=== PATIENT | male | born 1955 | race African-American/Black ===

== ENCOUNTER 2017-06-02 18:17 | Emergency (ER) | payer MEDICAID, MEDICARE ==
[~2017-06-02] VITALS: Ht 170.2 cm; Wt 107.0 kg
[~2017-06-02 18:17] MED LIST: BENA40TA3 PO; METF500T PO; QUET25TA PO
[2017-06-02 23:16] LABS: BASOPHILS % 0.3 % (0.0-2.0); CHLORIDE 107 mEq/L (98-107); EOSINOPHILS % 1.8 % (0.0-5.0); HEMATOCRIT. 40.4 % (42.0-52.0); HEMOGLOBIN. 13.3 g/dL (14.0-18.0); LYMPHOCYTES % 25.8 % (20.0-50.0); MEAN CORPUSCULAR VOLUME 88.4 fL (80.0-94.0); MEAN PLATELET VOLUME 7.8 fl (7.4-10.4); NEUTROPHILS % 66.1 % (40.0-76.0); PLATELET 286 x1000/uL (130-400); RED BLOOD CELL COUNT 4.57 mill/uL (4.7-6.1); RED CELL DISTRIBUTION WIDTH 14.7 % (11.6-14.6)
[2017-06-02 23:21] LABS: PROTHROMBIN TIME 10.1 sec (9.4-11.6)
[2017-06-02 23:31] LABS: CARBON DIOXIDE 29 mEq/L (21-32)
[2017-06-02] MEDS ORDERED: MORPHINE SULFATE 4 MG/ML CPJ (NOT FOR IM USE) IV STA (23:48)
[2017-06-02] MEDS ORDERED: SODIUM CHLORIDE 0.9% 1,000 ML IV ONE (23:48)
[2017-06-02] MEDS ORDERED: ONDANSETRON HCL 4MG/2ML VIAL IV STA (23:48)
[2017-06-03] MEDS ORDERED: MORPHINE SULFATE 10 MG/ML CPJ IV STA (00:25)
[2017-06-03] MEDS ORDERED: MORPHINE SULFATE 10 MG/ML CPJ IV SCH (00:30)
[2017-06-03 01:18] LABS: CLARITY URINE CLEAR (CLEAR); COLOR URINE YELLOW (YELLOW); GLUCOSE URINE NEGATIVE (NEGATIVE); KETONES URINE NEGATIVE (NEGATIVE); LEUKOCYTE ESTERASE URINE NEGATIVE (NEGATIVE); NITRITE URINE NEGATIVE (NEGATIVE); OCCULT BLOOD URINE NEGATIVE (NEGATIVE); PH URINE 5.5 (4.5-8.0); PROTEIN URINE NEGATIVE (NEGATIVE); SPECIFIC GRAVITY URINE 1.014 (1.005-1.030); UROBILINOGEN URINE 0.2 E.U./dL (0.2-1.0)
[2017-06-03 03:13] VITALS: BP 132/86
== END 2017-06-03 03:20 | disposition home or self-care (01) ==
LOC: ER 18:27
DX: K40.20 Bilateral inguinal hernia, without obstruction or gangrene, not specified as recurrent (principal); N28.1 Cyst of kidney, acquired; E11.9 Type 2 diabetes mellitus without complications; I10 Essential (primary) hypertension; K57.90 Diverticulosis of intestine, part unspecified, without perforation or abscess without bleeding; G89.29 Other chronic pain; F17.200 Nicotine dependence, unspecified, uncomplicated; Z88.6 Allergy status to analgesic agent
CPT/HCPCS: 36415; 74177; 76857; 80053; 81003; 82962; 85025; 85610; 96361; 96374; 96375; 99285; G0482; J2270; J2405; J7030; Z7610

== ENCOUNTER 2017-06-03 14:44 | Emergency (ER) | payer MEDICARE ==
[~2017-06-03] VITALS: Ht 180.3 cm; Wt 90.0 kg
[~2017-06-03 14:44] MED LIST changes: +IOHEXOL-300 100 ML BOTTLE ONE
[2017-06-03] MEDS ORDERED: SODIUM CHLORIDE 0.9% 1,000 ML IV ONE (16:00)
[2017-06-03] MEDS ORDERED: ONDANSETRON HCL 4MG/2ML VIAL IV ONE (16:00)
[2017-06-03] MEDS ORDERED: MORPHINE SULFATE 1MG/ML 1ML INJ SYR(NEO) IV ONE (16:00)
[2017-06-03] MEDS ORDERED: MORPHINE SULFATE 2 MG/ML CPJ (NOT FOR IM USE) IV NR (16:30)
[2017-06-03 16:32] LABS: BASOPHILS % 0.4 % (0.0-2.0); EOSINOPHILS % 2.4 % (0.0-5.0); HEMATOCRIT. 37.1 % (42.0-52.0); HEMOGLOBIN. 12.4 g/dL (14.0-18.0); LYMPHOCYTES % 25.5 % (20.0-50.0); MEAN CORPUSCULAR HEMOGLOBIN 29.3 pg (28.0-32.0); MEAN CORPUSCULAR VOLUME 87.7 fL (80.0-94.0); MEAN PLATELET VOLUME 7.6 fl (7.4-10.4); NEUTROPHILS % 65.7 % (40.0-76.0); PLATELET 257 x1000/uL (130-400); RED BLOOD CELL COUNT 4.23 mill/uL (4.7-6.1); RED CELL DISTRIBUTION WIDTH 14.4 % (11.6-14.6)
[2017-06-03 16:36] LABS: PROTHROMBIN TIME 10.4 sec (9.4-11.6)
[2017-06-03 16:42] LABS: CARBON DIOXIDE 25 mEq/L (21-32); CHLORIDE 109 mEq/L (98-107)
[2017-06-03 16:47] LABS: CLARITY URINE CLEAR (CLEAR); COLOR URINE YELLOW (YELLOW); KETONES URINE NEGATIVE (NEGATIVE); LEUKOCYTE ESTERASE URINE NEGATIVE (NEGATIVE); NITRITE URINE NEGATIVE (NEGATIVE); OCCULT BLOOD URINE NEGATIVE (NEGATIVE); PROTEIN URINE NEGATIVE (NEGATIVE); SPECIFIC GRAVITY URINE 1.015 (1.005-1.030); UROBILINOGEN URINE 0.2 E.U./dL (0.2-1.0)
[2017-06-03 16:57] VITALS: BP 145/76
== END 2017-06-03 18:26 | disposition left against medical advice (07) ==
LOC: ER 14:50
DX: K40.20 Bilateral inguinal hernia, without obstruction or gangrene, not specified as recurrent (principal); E11.9 Type 2 diabetes mellitus without complications; I10 Essential (primary) hypertension; F20.9 Schizophrenia, unspecified; Z88.6 Allergy status to analgesic agent
CPT/HCPCS: 36415; 80053; 81003; 83690; 85025; 85610; 96361; 96374; 96375; 99285; J2270; J2405; J7030; Q9967; Z7610

== ENCOUNTER 2023-07-29 21:48 | Emergency (ER) | payer MEDICARE, MEDICAID ==
[~2023-07-29] VITALS: Ht 180.3 cm; Wt 114.0 kg
[~2023-07-29 21:48] MED LIST changes: -BENA40TA3 PO; +BENA40TA91 PO; -IOHEXOL-300 100 ML BOTTLE ONE
[2023-07-29 23:14] VITALS: BP 164/75; PULSE 72; RESP 15; TEMP 98.4; O2SAT 100
[2023-07-30 00:12] LABS: BASOPHILS % 0.7 % (0.0-2.0); HEMATOCRIT. 38.4 % (42.0-52.0); HEMOGLOBIN. 12.8 g/dL (14.0-18.0); LYMPHOCYTES % 26.2 % (20.0-50.0); MEAN CORPUSCULAR HEMOGLOBIN 30.2 pg (28.0-32.0); MEAN CORPUSCULAR HGB CONC 33.3 g/dL (31.0-37.0); MEAN CORPUSCULAR VOLUME 90.7 fL (80.0-94.0); MEAN PLATELET VOLUME 7.8 fl (7.4-10.4); MONOCYTES % 8.2 % (2.0-8.0); NEUTROPHILS % 62.9 % (40.0-76.0); PLATELET 290 x1000/uL (130-400); RED BLOOD CELL COUNT 4.24 mill/uL (4.7-6.1); RED CELL DISTRIBUTION WIDTH 14.4 % (11.6-14.6); WHITE BLOOD COUNT 8.1 x1000/uL (4.5-11.0)
[2023-07-30 00:32] LABS: ALANINE AMINOTRANSFERASE 17 IU/L (10-49); ASPARTATE AMINOTRANSFERASE 20 IU/L (<34); BILIRUBIN TOTAL 0.6 mg/dL (0.1-1.0); CALCIUM 9.1 mg/dL (8.7-10.4); CARBON DIOXIDE 22 mEq/L (21-32); CHLORIDE 111 mEq/L (98-107); GLUCOSE 101 mg/dL (70-105); PROTEIN TOTAL 7.2 g/dL (6.0-8.3); SODIUM 143 mEq/L (136-145); TROPONIN I HIGH SENSITIVITY 4 ng/L (3.0-53); UREA NITROGEN BLOOD 12 mg/dL (9-23)
== END 2023-07-30 04:00 | disposition left against medical advice (07) ==
LOC: ER 21:48
DX: R07.89 Other chest pain (principal); Z53.21 Procedure and treatment not carried out due to patient leaving prior to being seen by health care provider
CPT/HCPCS: 36415; 71045; 80053; 83880; 84484; 85025; 93005; 99281

== ENCOUNTER 2025-01-22 09:57 | Inpatient (IN) | payer BC, MEDICAID ==
[2025-01-22] VITALS (31 sets, daily range): BP systolic 105–169; BP diastolic 50–95; PULSE 73–135; RESP 28–31; TEMP 36.4–36.8; O2SAT 98–100
[~2025-01-22] VITALS: Ht 180.3 cm; Wt 115.3 kg
[~2025-01-22 09:57] MED LIST changes: +ATOR40TA70 PO; -BENA40TA91 PO; +DILT60TA4 PO; +FURO40TA5 PO; +HYDR25TA78 PO; +INSLIS SUBCUT; +ISOS60TA76 PO; +LANTUSUD SUBCUT; +LORA-249 PO; -METF500T PO; +PANT40TA51 PO; -QUET25TA PO; +SUCR1TAB PO
[2025-01-22] MEDS: IOHEXOL-350 100 ML BOTTLE ONE (10:47)
[2025-01-22 10:59] LABS: BASOPHILS % 0.5 % (0.0-2.0); EOSINOPHILS % 0.7 % (0.0-5.0); HEMATOCRIT. 25.3 % (42.0-52.0); HEMOGLOBIN. 7.7 g/dL (14.0-18.0); LYMPHOCYTES % 8.4 % (20.0-50.0); MEAN PLATELET VOLUME 7.0 fl (7.4-10.4); MONOCYTES % 12.3 % (2.0-8.0); NEUTROPHILS % 78.1 % (40.0-76.0); PLATELET 488 x1000/uL (130-400); RED BLOOD CELL COUNT 2.77 mill/uL (4.7-6.1); RED CELL DISTRIBUTION WIDTH 22.8 % (11.6-14.6)
[2025-01-22 11:08] LABS: INR 1.6
[2025-01-22 11:10] LABS: ETHANOL BLOOD < 10 mg/dL (<10); TROPONIN I HIGH SENSITIVITY 12 ng/L (3.0-53); UREA NITROGEN BLOOD 37 mg/dL (9-23)
[2025-01-22 11:11] LABS: ADD RBC MORPHOLOGY YES; ASPARTATE AMINOTRANSFERASE 476 IU/L (<34)
[2025-01-22 11:12] LABS: BILIRUBIN DIRECT 0.5 mg/dL (<=3.0); BILIRUBIN TOTAL 0.9 mg/dL (0.1-1.0); PROTEIN TOTAL 5.6 g/dL (6.0-8.3)
[2025-01-22 11:21] LABS: CREATININE 3.1 mg/dL (0.6-1.3)
[2025-01-22] MEDS: SODIUM CHLORIDE 0.9% 1,000 ML IV ONE ×2 (11:24→11:30)
[2025-01-22] MEDS: DILTIAZEM HCL 5MG/ML 5ML VIAL IV ONE (11:28)
[2025-01-22 11:33] LABS: PLATELET ESTIMATE INCREASED
[2025-01-22] MEDS: PIPERACILLIN/TAZO 3.375G/50ML 50 ML IV ONE (11:42)
[2025-01-22 13:43] LABS: BG DEOXYHEMOGLOBIN 23.8 % (0.0-5.0)
[2025-01-22 16:04] LABS: BG BASE EXCESS -20.5 mmol/L (-2.0-3.0); BG CARBOXYHEMOGLOBIN 0.5 % (0.5-1.5); BG DEOXYHEMOGLOBIN 1.5 % (0.0-5.0); BG FLOW(L/min) 3.00 L/min; BG FRACTION INSPIRED OXYGEN 32; BG HCO3 ACT 6.3 mmol/L (21.0-28.0); BG METHEMOGLOBIN 0.5 % (0.5-1.5); BG OXYGEN SATURATION 98.5 % (94.0-98.0); BG OXYHEMOGLOBIN 97.5 % (94.0-98.0); BG PCO2 17.8 mmHg (35.0-48.0); BG PH 7.164 (7.350-7.450); BG PO2 138.5 mmHg (83.0-108.0); BG SAMPLE SITE RIGHT RADIAL; BG TOTAL HEMOGLOBIN 8.2 g/dL (13.5-17.5); BG VENT MODE NASAL CANNULA
[2025-01-22] MEDS: ONDANSETRON HCL 4MG/2ML INJ IV PRN (16:09)
[2025-01-22] MEDS: SODIUM CHLORIDE 0.9% 1,000 ML IV SCH (16:10)
[2025-01-22] MEDS: SODIUM BICARBONATE 8.4% 50MEQ/50ML SYR IV SCH (16:10)
[2025-01-22] MEDS: LACTATED RINGERS 1,000 ML IV SCH (16:12)
[2025-01-22] MEDS: VANCOMYCIN 2GM PMX (XELLIA) 400 ML IV SCH (18:12)
[2025-01-22 18:24] LABS: BG BASE EXCESS -17.6 mmol/L (-2.0-3.0); BG CARBOXYHEMOGLOBIN 0.9 % (0.5-1.5); BG DEOXYHEMOGLOBIN 0.2 % (0.0-5.0); BG FRACTION INSPIRED OXYGEN 40; BG HCO3 ACT 8.4 mmol/L (21.0-28.0); BG METHEMOGLOBIN 0.3 % (0.5-1.5); BG OXYGEN SATURATION 99.8 % (94.0-98.0); BG OXYHEMOGLOBIN 98.6 % (94.0-98.0); BG PCO2 20.8 mmHg (35.0-48.0); BG PH 7.223 (7.350-7.450); BG PO2 223.3 mmHg (83.0-108.0); BG SAMPLE SITE RIGHT RADIAL; BG TOTAL HEMOGLOBIN 8.0 g/dL (13.5-17.5); BG TOTAL RESPIRATORY RATE 29 b/min; BG VENT MODE MASK - BIPAP; BG VENT RATE 28.0 set
[2025-01-22] MEDS ORDERED: INSULIN REGULAR 100U/100ML PMX 100 ML IV SCH (18:45)
[2025-01-22] MEDS ORDERED: DEXTROSE 50% WATER 50ML SYRINGE IV PRN ×3 (18:45→19:00)
[2025-01-22] MEDS ORDERED: ONDANSETRON HCL 4MG/2ML INJ IV PRN (18:45)
[2025-01-22] MEDS ORDERED: BLOOD SUGAR DIAGNOSTIC STRIP TEST SCH (18:45)
[2025-01-22] MEDS ORDERED: SODIUM PHOSPHATE 15 MMOL in SODIUM CHLORIDE 0.9% 245 ML IV PRN (19:00)
[2025-01-22] MEDS ORDERED: BLOOD SUGAR DIAGNOSTIC STRIP TEST PRN (19:00)
[2025-01-22] MEDS ORDERED: SODIUM CHLORIDE 0.9% 1,000 ML IV SCH (19:00)
[2025-01-22] MEDS ORDERED: POTASSIUM CHLORIDE 40 MEQ in SODIUM CHLORIDE 0.9% 230 ML IV PRN (19:00)
[2025-01-22] MEDS ORDERED: MAGNESIUM 2 G PREMIX 50 ML IV PRN (19:00)
[2025-01-22] MEDS: BLOOD SUGAR DIAGNOSTIC STRIP TEST SCH (19:00)
[2025-01-22 20:06] LABS: PLATELET 488 x1000/uL (130-400); RED BLOOD CELL COUNT 2.57 mill/uL (4.7-6.1); RED CELL DISTRIBUTION WIDTH 22.0 % (11.6-14.6)
[2025-01-22 20:21] LABS: CREATININE 3.3 mg/dL (0.6-1.3); UREA NITROGEN BLOOD 45.0 mg/dL (9-23)
[2025-01-22 21:27] LABS: PHOSPHORUS 5.6 mg/dL (2.5-4.9)
[2025-01-22] MEDS: DEXT 5%/0.9% NACL 1,000 ML IV SCH (21:47)
[2025-01-22] MEDS: KCL 20MEQ/100ML PREMIX 100 ML IV PRN (21:48)
[2025-01-22] MEDS: INSULIN REGULAR 100U/100ML PMX 100 ML IV SCH (21:58)
[2025-01-22 22:02] LABS: CLARITY URINE CLEAR (CLEAR); COLOR URINE YELLOW (YELLOW); GLUCOSE URINE NEGATIVE (NEGATIVE); KETONES URINE 1+ (NEGATIVE); LEUKOCYTE ESTERASE URINE NEGATIVE (NEGATIVE); NITRITE URINE NEGATIVE (NEGATIVE); OCCULT BLOOD URINE TRACE (NEGATIVE); PH URINE 5.0 (4.5-8.0); PROTEIN URINE 1+ (NEGATIVE); SPECIFIC GRAVITY URINE 1.034 (1.005-1.030); UROBILINOGEN URINE 1.0 E.U./dL (0.2-1.0)
[2025-01-22 22:07] LABS: PHOSPHORUS 5.5 mg/dL (2.5-4.9)
[2025-01-22 22:26] LABS: WBC URINE 0-2 /hpf (0-2)
[2025-01-22 22:27] LABS: BACTERIA URINE 1+; SQUAMOUS EPITHELIAL CELL URINE FEW /lpf (RARE/1+)
[2025-01-22] MEDS: IPRATROPIUM/ALBUTEROL 0.5-3(2.5)MG/3ML NEB HHN PRN (22:41)
[2025-01-22] MEDS ORDERED: SODIUM BICARBONATE 150 MEQ in SODIUM CHLORIDE 0.45% 850 ML IV SCH (23:00)
[2025-01-23] VITALS (64 sets, daily range): BP systolic 107–181; BP diastolic 49–120; PULSE 66–101; RESP 12–35; TEMP 36.4–36.9; O2SAT 87–100
[2025-01-23 01:03] LABS: BG BASE EXCESS -16.1 mmol/L (-2.0-3.0); BG CARBOXYHEMOGLOBIN 1.3 % (0.5-1.5); BG DEOXYHEMOGLOBIN 17.8 % (0.0-5.0); BG FRACTION INSPIRED OXYGEN 40; BG HCO3 ACT 10.1 mmol/L (21.0-28.0); BG METHEMOGLOBIN 0.0 % (0.5-1.5); BG OXYGEN SATURATION 82.0 % (94.0-98.0); BG OXYHEMOGLOBIN 80.9 % (94.0-98.0); BG PCO2 25.2 mmHg (35.0-48.0); BG PH 7.221 (7.350-7.450); BG PO2 52.0 mmHg (83.0-108.0); BG SAMPLE SITE RIGHT BRACHIAL; BG TOTAL HEMOGLOBIN 6.6 g/dL (13.5-17.5); BG VENT MODE MASK - BIPAP; BG VENT RATE 28.0 set
[2025-01-23] MEDS: SODIUM BICARBONATE 150 MEQ in DEXT 5%/0.45% NACL 1000ML 850 ML IV SCH (01:05)
[2025-01-23] MEDS: PIPERACILLIN/TAZO 3.375G/50ML 50 ML IV SCH (01:14)
[2025-01-23 01:27] LABS: FOLIC ACID (FOLATE) SERUM 15.67 ng/mL (>5.38)
[2025-01-23 03:12] LABS: PHOSPHORUS 4.6 mg/dL (2.5-4.9)
[2025-01-23 03:57] LABS: HEMATOCRIT. 23.4 % (42.0-52.0); HEMOGLOBIN. 7.1 g/dL (14.0-18.0); MEAN PLATELET VOLUME 6.9 fl (7.4-10.4); PLATELET 458 x1000/uL (130-400); RED BLOOD CELL COUNT 2.59 mill/uL (4.7-6.1); RED CELL DISTRIBUTION WIDTH 23.1 % (11.6-14.6)
[2025-01-23 04:26] LABS: CREATININE 3.3 mg/dL (0.6-1.3); UREA NITROGEN BLOOD 41 mg/dL (9-23)
[2025-01-23 04:28] LABS: PHOSPHORUS 4.0 mg/dL (2.5-4.9)
[2025-01-23 07:20] LABS: BAND% 6.0 % (1.0-6.0); EOSINOPHILS % MANUAL 1.0 % (0.0-5.0); LYMPHOCYTES % MANUAL 9.0 % (20.0-50.0); MONOCYTES % MANUAL 16.0 % (2.0-8.0); NEUTROPHILS % MANUAL 68.0 % (45.0-75.0); PLATELET ESTIMATE INCREASED
[2025-01-23] MEDS: HYDRALAZINE 20MG/ML VIAL IV PRN (08:14)
[2025-01-23] MEDS: FAMOTIDINE 20MG/2ML VIAL IV SCH (08:14)
[2025-01-23 08:22] LABS: BG BASE EXCESS -13.2 mmol/L (-2.0-3.0); BG CARBOXYHEMOGLOBIN 0.5 % (0.5-1.5); BG DEOXYHEMOGLOBIN 0.3 % (0.0-5.0); BG FRACTION INSPIRED OXYGEN 50; BG HCO3 ACT 11.5 mmol/L (21.0-28.0); BG METHEMOGLOBIN 0.3 % (0.5-1.5); BG OXYGEN SATURATION 99.7 % (94.0-98.0); BG OXYHEMOGLOBIN 98.9 % (94.0-98.0); BG PCO2 22.7 mmHg (35.0-48.0); BG PH 7.322 (7.350-7.450); BG PO2 265.2 mmHg (83.0-108.0); BG SAMPLE SITE RIGHT RADIAL; BG TOTAL HEMOGLOBIN 7.4 g/dL (13.5-17.5); BG VENT MODE MASK - BIPAP; BG VENT RATE 28.0 set
[2025-01-23] MEDS ORDERED: DEXTROSE 50% WATER 50ML SYRINGE IV PRN ×2 (08:45→13:00)
[2025-01-23] MEDS: SODIUM BICARBONATE 8.4% 50MEQ/50ML SYR IV SCH (09:27)
[2025-01-23 10:19] LABS: *AMPHETAMINES SCREEN URINE NEGATIVE (NEGATIVE); *BARBITURATES SCREEN URINE NEGATIVE (NEGATIVE); *BENZODIAZEPINES SCREEN URINE NEGATIVE (NEGATIVE); *COCAINE SCREEN URINE NEGATIVE (NEGATIVE); METHADONE URINE SCREEN NEGATIVE (NEGATIVE); OPIATES URINE SCREEN PRESUMPTIVE POSITIVE (NEGATIVE)
[2025-01-23 10:20] LABS: CANNABINOID URINE SCREEN NEGATIVE (NEGATIVE); ECSTASY MDMA SCREEN URINE NEGATIVE (NEGATIVE); PHENCYCLIDINE URINE SCREEN NEGATIVE (NEGATIVE)
[2025-01-23 10:46] LABS: SODIUM URINE RANDOM < 10 mEq/L
[2025-01-23 11:37] LABS: VITAMIN B12 SERUM > 2000 pg/mL (211-911)
[2025-01-23 11:39] LABS: OSMOLALITY URINE 356 mOsm/kg (500-850)
[2025-01-23] MEDS: SODIUM CHLORIDE 0.9% 500 ML IV ONE (12:19)
[2025-01-23] MEDS ORDERED: BLOOD SUGAR DIAGNOSTIC STRIP TEST PRN (13:00)
[2025-01-23] MEDS ORDERED: INSULIN REGULAR 100U/100ML PMX 100 ML IV SCH (13:00)
[2025-01-23] MEDS: DEXT 5%/0.9% NACL 1,000 ML IV SCH (13:00)
[2025-01-23] MEDS ORDERED: MAGNESIUM 2 G PREMIX 50 ML IV PRN (13:00)
[2025-01-23] MEDS ORDERED: POTASSIUM CHLORIDE 40 MEQ in SODIUM CHLORIDE 0.9% 230 ML IV PRN (13:00)
[2025-01-23] MEDS ORDERED: SODIUM PHOSPHATE 15 MMOL in SODIUM CHLORIDE 0.9% 245 ML IV PRN (13:00)
[2025-01-23] MEDS: BLOOD SUGAR DIAGNOSTIC STRIP TEST SCH (13:13)
[2025-01-23 13:17] LABS: BG DEOXYHEMOGLOBIN 0.5 % (0.0-5.0)
[2025-01-23 13:29] LABS: CREATININE 3.1 mg/dL (0.6-1.3); UREA NITROGEN BLOOD 45.0 mg/dL (9-23)
[2025-01-23 13:31] LABS: TRIGLYCERIDE 94 mg/dL (0-150)
[2025-01-23 13:32] LABS: LDL CHOLESTEROL 16 mg/dL (5-100)
[2025-01-23] MEDS ORDERED: INSULIN LISPRO 100 UNITS/ML SUBCUT SCH (14:00)
[2025-01-23] MEDS: INSULIN REGULAR 100U/100ML PMX 100 ML IV SCH (15:07)
[2025-01-23] MEDS: DEXT 5%/0.45% NACL 1000ML 1,000 ML IV SCH (15:08)
[2025-01-23 17:15] LABS: ASPARTATE AMINOTRANSFERASE 168 IU/L (<34); BILIRUBIN DIRECT 0.4 mg/dL (<=3.0); BILIRUBIN TOTAL 0.7 mg/dL (0.1-1.0); PROTEIN TOTAL 5.5 g/dL (6.0-8.3)
[2025-01-23 18:57] LABS: PHOSPHORUS 3.0 mg/dL (2.5-4.9)
[2025-01-23] MEDS ORDERED: NALOXONE HCL 0.4MG/ML VIAL IV PRN (19:45)
[2025-01-23] MEDS: HYDROMORPHONE HCL/PF 2MG/ML INJ IV SCH (20:24)
[2025-01-23] MEDS ORDERED: ATORVASTATIN CALCIUM 40MG TABLET PO SCH (21:00)
[2025-01-23] MEDS ORDERED: VANCOMYCIN 750MG PREMIX 150 ML IV SCH (21:00)
[2025-01-23] MEDS: AMLODIPINE 10MG TABLET PO SCH (23:54)
[2025-01-23] MEDS: HYDRALAZINE HCL 25MG TABLET PO SCH (23:54)
[2025-01-24] VITALS (44 sets, daily range): BP systolic 109–190; BP diastolic 41–129; PULSE 74–139; RESP 10–31; TEMP 33.9–37.2; O2SAT 94–100
[2025-01-24] MEDS: PIPERACILLIN/TAZO 3.375G/50ML 50 ML IV SCH (00:11)
[2025-01-24] MEDS: SODIUM CHLORIDE 0.9% 500 ML IV ONE ×2 (01:55)
[2025-01-24 01:57] LABS: PHOSPHORUS 3.7 mg/dL (2.5-4.9)
[2025-01-24] MEDS: KCL 20MEQ/100ML PREMIX 100 ML IV PRN (02:12)
[2025-01-24 05:53] LABS: BASOPHILS % 0.3 % (0.0-2.0); EOSINOPHILS % 2.9 % (0.0-5.0); HEMATOCRIT. 25.9 % (42.0-52.0); HEMOGLOBIN. 8.6 g/dL (14.0-18.0); LYMPHOCYTES % 10.4 % (20.0-50.0); MEAN PLATELET VOLUME 6.9 fl (7.4-10.4); MONOCYTES % 12.0 % (2.0-8.0); NEUTROPHILS % 74.4 % (40.0-76.0); PLATELET 438 x1000/uL (130-400); RED BLOOD CELL COUNT 3.05 mill/uL (4.7-6.1); RED CELL DISTRIBUTION WIDTH 21.0 % (11.6-14.6)
[2025-01-24 06:00] LABS: INR 1.3
[2025-01-24 06:06] LABS: CREATININE 2.8 mg/dL (0.6-1.3); UREA NITROGEN BLOOD 47 mg/dL (9-23)
[2025-01-24 06:08] LABS: PHOSPHORUS 3.9 mg/dL (2.5-4.9)
[2025-01-24] MEDS: SUCRALFATE 1G TABLET PO SCH (06:30)
[2025-01-24] MEDS: PANTOPRAZOLE SODIUM 40 MG/VIAL IV SCH (08:39)
[2025-01-24] MEDS: FOLIC ACID/VITAMIN B COMP W-C TABLET PO SCH (08:40)
[2025-01-24] MEDS: FUROSEMIDE 40MG/4ML VIAL IVP NR (08:40)
[2025-01-24] MEDS: DEXT 5%/0.45% NACL 1000ML 1,000 ML IV SCH (08:41)
[2025-01-24] MEDS: FERROUS SULFATE 325MG TABLET PO SCH (08:41)
[2025-01-24 11:04] LABS: ASPARTATE AMINOTRANSFERASE 112 IU/L (<34); BILIRUBIN DIRECT 0.6 mg/dL (<=3.0); BILIRUBIN TOTAL 1.1 mg/dL (0.1-1.0); PHOSPHORUS 3.7 mg/dL (2.5-4.9); PROTEIN TOTAL 5.9 g/dL (6.0-8.3)
[2025-01-24] MEDS: DEXTROSE 5% WATER 1,000 ML IV SCH (13:02)
[2025-01-24 13:32] LABS: CREATININE 2.6 mg/dL (0.6-1.3); UREA NITROGEN BLOOD 46.0 mg/dL (9-23)
[2025-01-24 16:46] LABS: PHOSPHORUS 3.9 mg/dL (2.5-4.9)
[2025-01-24 18:16] LABS: PHOSPHORUS 4.0 mg/dL (2.5-4.9)
[2025-01-24] MEDS: MICAFUNGIN 100 MG in SODIUM CHLORIDE 0.9% 100 ML IV SCH (18:46)
[2025-01-24 22:20] LABS: PHOSPHORUS 4.1 mg/dL (2.5-4.9)
[2025-01-25] VITALS (89 sets, daily range): BP systolic 110–170; BP diastolic 48–79; PULSE 74–105; RESP 6–26; TEMP 36.3–37.3; O2SAT 100
[2025-01-25] MEDS ORDERED: BLOOD SUGAR DIAGNOSTIC STRIP TEST SCH
[2025-01-25] MEDS: QUETIAPINE FUMARATE 25MG TABLET PO PRN (01:53)
[2025-01-25] MEDS: MIDAZOLAM 100MG/100ML PMX 100 ML IV PRN (03:20)
[2025-01-25] MEDS: FENTANYL 2500MCG/250ML PMX 250 ML IV PRN (03:20)
[2025-01-25 04:57] LABS: BASOPHILS % 0.1 % (0.0-2.0); EOSINOPHILS % 3.2 % (0.0-5.0); HEMATOCRIT. 22.5 % (42.0-52.0); HEMOGLOBIN. 7.5 g/dL (14.0-18.0); LYMPHOCYTES % 10.4 % (20.0-50.0); MEAN PLATELET VOLUME 6.9 fl (7.4-10.4); MONOCYTES % 9.3 % (2.0-8.0); NEUTROPHILS % 77.0 % (40.0-76.0); PLATELET 415 x1000/uL (130-400); RED BLOOD CELL COUNT 2.69 mill/uL (4.7-6.1); RED CELL DISTRIBUTION WIDTH 21.7 % (11.6-14.6)
[2025-01-25 05:19] LABS: CREATININE 2.2 mg/dL (0.6-1.3); UREA NITROGEN BLOOD 39 mg/dL (9-23)
[2025-01-25 05:21] LABS: ASPARTATE AMINOTRANSFERASE 84 IU/L (<34); BILIRUBIN DIRECT 0.8 mg/dL (<=3.0); BILIRUBIN TOTAL 1.2 mg/dL (0.1-1.0); PROTEIN TOTAL 6.0 g/dL (6.0-8.3)
[2025-01-25 06:03] LABS: BG FRACTION INSPIRED OXYGEN 60; BG SAMPLE SITE LEFT RADIAL; BG TIDAL VOLUME(mL) 550 mL; BG VENT MODE AC; BG VENT RATE 20 set
[2025-01-25 06:04] LABS: BG PCO2 31.3 mmHg (35.0-48.0); BG PEEP (cmH2O) 5 cmH2O; BG PH 7.326 (7.350-7.450)
[2025-01-25 06:05] LABS: BG BASE EXCESS -8.7 mmol/L (-2.0-3.0); BG HCO3 ACT 16.0 mmol/L (21.0-28.0); BG PO2 241.4 mmHg (83.0-108.0); BG TOTAL HEMOGLOBIN 14.3 g/dL (13.5-17.5)
[2025-01-25 06:06] LABS: BG CARBOXYHEMOGLOBIN 1.3 % (0.5-1.5); BG OXYGEN SATURATION 99.8 % (94.0-98.0)
[2025-01-25 06:07] LABS: BG METHEMOGLOBIN 0.1 % (0.5-1.5)
[2025-01-25] MEDS: LIDOCAINE HCL 1% 10 MG/ML 10ML VIAL ONE (09:00)
[2025-01-25] MEDS: ONDANSETRON HCL 4MG/2ML INJ IV ONE (09:00)
[2025-01-25] MEDS: MORPHINE SULFATE 4 MG/ML INJ (FOR IV/IM USE) IV ONE (09:00)
[2025-01-25] MEDS: PANTOPRAZOLE SODIUM 40 MG/VIAL IV ONE (09:00)
[2025-01-25] MEDS: VANCOMYCIN 1G PREMIX 200 ML IV ONE (09:00)
[2025-01-25] MEDS ORDERED: DEXTROSE 50% WATER 50ML SYRINGE IV PRN (09:15)
[2025-01-25 09:53] LABS: BASOPHILS % 0.1 % (0.0-2.0); EOSINOPHILS % 3.7 % (0.0-5.0); HEMATOCRIT. 21.6 % (42.0-52.0); HEMOGLOBIN. 7.3 g/dL (14.0-18.0); LYMPHOCYTES % 11.8 % (20.0-50.0); MEAN PLATELET VOLUME 7.0 fl (7.4-10.4); MONOCYTES % 9.4 % (2.0-8.0); NEUTROPHILS % 75.0 % (40.0-76.0); PLATELET 351 x1000/uL (130-400); RED BLOOD CELL COUNT 2.52 mill/uL (4.7-6.1); RED CELL DISTRIBUTION WIDTH 21.6 % (11.6-14.6)
[2025-01-25 10:04] LABS: CREATININE 1.9 mg/dL (0.6-1.3); UREA NITROGEN BLOOD 30.0 mg/dL (9-23)
[2025-01-25] MEDS: INSULIN GLARGINE 100 UNITS/ML SUBCUT SCH (10:04)
[2025-01-25] MEDS: BLOOD SUGAR DIAGNOSTIC STRIP TEST SCH (12:05)
[2025-01-25] MEDS: INSULIN LISPRO 100 UNITS/ML SUBCUT SCH (12:07)
[2025-01-25] MEDS ORDERED: ETOMIDATE 2MG/ML 10ML VIAL IV ONE (13:50)
[2025-01-25] MEDS: PROPOFOL 10MG/ML 100ML 100 ML IV PRN (14:12)
[2025-01-25 14:59] LABS: BG DEOXYHEMOGLOBIN 0.2 % (0.0-5.0); BG OXYHEMOGLOBIN 98.4 % (94.0-98.0)
[2025-01-25] MEDS ORDERED: DIATR MEGLU/DIATRIZOATE SOLN 30ML PO SCH (18:00)
[2025-01-26] VITALS (92 sets, daily range): BP systolic 114–164; BP diastolic 50–107; PULSE 72–89; RESP 17–27; TEMP 36.8–37.3; O2SAT 98–100
[2025-01-26 06:00] LABS: BASOPHILS % 0.1 % (0.0-2.0); EOSINOPHILS % 5.0 % (0.0-5.0); HEMATOCRIT. 21.8 % (42.0-52.0); HEMOGLOBIN. 7.4 g/dL (14.0-18.0); LYMPHOCYTES % 9.6 % (20.0-50.0); MEAN PLATELET VOLUME 7.1 fl (7.4-10.4); MONOCYTES % 7.6 % (2.0-8.0); NEUTROPHILS % 77.7 % (40.0-76.0); PLATELET 376 x1000/uL (130-400); RED BLOOD CELL COUNT 2.58 mill/uL (4.7-6.1); RED CELL DISTRIBUTION WIDTH 22.0 % (11.6-14.6)
[2025-01-26 06:12] LABS: INR 1.2
[2025-01-26 06:16] LABS: CREATININE 1.6 mg/dL (0.6-1.3)
[2025-01-26 06:17] LABS: UREA NITROGEN BLOOD 28.0 mg/dL (9-23)
[2025-01-26 06:21] LABS: TRIGLYCERIDE 623 mg/dL (0-150)
[2025-01-26 06:23] LABS: ASPARTATE AMINOTRANSFERASE 63 IU/L (<34); BILIRUBIN DIRECT 0.8 mg/dL (<=3.0); BILIRUBIN TOTAL 1.3 mg/dL (0.1-1.0); PROTEIN TOTAL 5.4 g/dL (6.0-8.3)
[2025-01-26] MEDS: DIATR MEGLU/DIATRIZOATE SOLN 30ML PO SCH (08:31)
[2025-01-26 09:14] LABS: BG BASE EXCESS -5.6 mmol/L (-2.0-3.0); BG CARBOXYHEMOGLOBIN 1.4 % (0.5-1.5); BG DEOXYHEMOGLOBIN 0.6 % (0.0-5.0); BG FRACTION INSPIRED OXYGEN 40; BG HCO3 ACT 18.5 mmol/L (21.0-28.0); BG METHEMOGLOBIN 0.1 % (0.5-1.5); BG OXYGEN SATURATION 99.4 % (94.0-98.0); BG OXYHEMOGLOBIN 97.9 % (94.0-98.0); BG PCO2 30.3 mmHg (35.0-48.0); BG PEEP (cmH2O) 5.0 cmH2O; BG PH 7.403 (7.350-7.450); BG PO2 169.3 mmHg (83.0-108.0); BG SAMPLE SITE LEFT RADIAL; BG TIDAL VOLUME(mL) 550.0 mL; BG TOTAL HEMOGLOBIN 7.7 g/dL (13.5-17.5); BG TOTAL RESPIRATORY RATE 21 b/min; BG VENT MODE VENT - AC; BG VENT RATE 20.0 set
[2025-01-26] MEDS ORDERED: FENTANYL CITRATE/PF 2,500 MCG in SODIUM CHLORIDE 0.9% 200 ML IV PRN (09:30)
[2025-01-26] MEDS ORDERED: MIDAZOLAM HCL 100 MG in SODIUM CHLORIDE 0.9% 80 ML IV PRN (09:30)
[2025-01-26] MEDS: PROPOFOL 10MG/ML 100ML 100 ML IV SCH (11:27)
[2025-01-26] MEDS: MIDAZOLAM 100MG/100ML PREMIX IV PRN (11:56)
[2025-01-26] MEDS: VANCOMYCIN 750MG PMX (XELLIA) 150 ML IV SCH (11:57)
[2025-01-26] MEDS: FENTANYL 2500MCG/250ML PMX 250 ML IV PRN (16:38)
[2025-01-27] VITALS (86 sets, daily range): BP systolic 98–168; BP diastolic 54–88; PULSE 79–115; RESP 10–31; TEMP 36.6–37.9; O2SAT 99–100
[2025-01-27] MEDS: LACTULOSE 20G/30ML UDC PO SCH (00:07)
[2025-01-27 05:38] LABS: BASOPHILS % 0.3 % (0.0-2.0); EOSINOPHILS % 4.4 % (0.0-5.0); HEMATOCRIT. 21.5 % (42.0-52.0); HEMOGLOBIN. 7.1 g/dL (14.0-18.0); LYMPHOCYTES % 12.3 % (20.0-50.0); MEAN PLATELET VOLUME 7.1 fl (7.4-10.4); MONOCYTES % 8.2 % (2.0-8.0); NEUTROPHILS % 74.8 % (40.0-76.0); PLATELET 372 x1000/uL (130-400); RED BLOOD CELL COUNT 2.56 mill/uL (4.7-6.1); RED CELL DISTRIBUTION WIDTH 21.7 % (11.6-14.6)
[2025-01-27 05:59] LABS: CREATININE 1.4 mg/dL (0.6-1.3); TRIGLYCERIDE 70 mg/dL (0-150); UREA NITROGEN BLOOD 20 mg/dL (9-23)
[2025-01-27 06:01] LABS: ASPARTATE AMINOTRANSFERASE 50 IU/L (<34); BILIRUBIN DIRECT 0.8 mg/dL (<=3.0); BILIRUBIN TOTAL 1.2 mg/dL (0.1-1.0); PROTEIN TOTAL 5.5 g/dL (6.0-8.3)
[2025-01-27] MEDS: MAGNESIUM HYDROXIDE 400MG/5ML 30ML UDC PO SCH (08:31)
[2025-01-27] MEDS ORDERED: POTASSIUM CHLORIDE 40 MEQ in DEXT 5% WATER 230 ML IV ONE (10:15)
[2025-01-27] MEDS: KCL 20MEQ/100ML X 2 FOR TOTAL KCL 40MEQ/200ML IV SCH (11:01)
[2025-01-27 15:41] LABS: BG BASE EXCESS -5.0 mmol/L (-2.0-3.0); BG CARBOXYHEMOGLOBIN 0.7 % (0.5-1.5); BG DEOXYHEMOGLOBIN 4.7 % (0.0-5.0); BG FRACTION INSPIRED OXYGEN 40; BG HCO3 ACT 18.9 mmol/L (21.0-28.0); BG METHEMOGLOBIN 0.3 % (0.5-1.5); BG OXYGEN SATURATION 95.3 % (94.0-98.0); BG OXYHEMOGLOBIN 94.3 % (94.0-98.0); BG PCO2 30.3 mmHg (35.0-48.0); BG PEEP (cmH2O) 5.0 cmH2O; BG PH 7.412 (7.350-7.450); BG PO2 80.8 mmHg (83.0-108.0); BG SAMPLE SITE LEFT RADIAL; BG TOTAL HEMOGLOBIN 8.5 g/dL (13.5-17.5); BG VENT MODE VENT - CPAP
[2025-01-27 20:27] LABS: BG BASE EXCESS -7.5 mmol/L (-2.0-3.0); BG CARBOXYHEMOGLOBIN 0.6 % (0.5-1.5); BG DEOXYHEMOGLOBIN 1.6 % (0.0-5.0); BG FLOW(L/min) 3.00 L/min; BG FRACTION INSPIRED OXYGEN 32; BG HCO3 ACT 16.9 mmol/L (21.0-28.0); BG METHEMOGLOBIN 0.3 % (0.5-1.5); BG OXYGEN SATURATION 98.4 % (94.0-98.0); BG OXYHEMOGLOBIN 97.5 % (94.0-98.0); BG PCO2 30.2 mmHg (35.0-48.0); BG PH 7.367 (7.350-7.450); BG PO2 119.0 mmHg (83.0-108.0); BG SAMPLE SITE LEFT RADIAL; BG TOTAL HEMOGLOBIN 8.5 g/dL (13.5-17.5); BG VENT MODE NASAL CANNULA
[2025-01-27] MEDS: VANCOMYCIN 500MG PREMIX 100 ML IV SCH (21:18)
[2025-01-28] VITALS (88 sets, daily range): BP systolic 97–165; BP diastolic 40–103; PULSE 85–111; RESP 17–34; TEMP 36.4–37; O2SAT 97–100
[2025-01-28 05:29] LABS: BASOPHILS % 0.2 % (0.0-2.0); EOSINOPHILS % 3.4 % (0.0-5.0); HEMATOCRIT. 22.8 % (42.0-52.0); HEMOGLOBIN. 7.4 g/dL (14.0-18.0); LYMPHOCYTES % 11.7 % (20.0-50.0); MEAN PLATELET VOLUME 7.1 fl (7.4-10.4); MONOCYTES % 10.2 % (2.0-8.0); NEUTROPHILS % 74.5 % (40.0-76.0); PLATELET 381 x1000/uL (130-400); RED BLOOD CELL COUNT 2.73 mill/uL (4.7-6.1); RED CELL DISTRIBUTION WIDTH 21.3 % (11.6-14.6)
[2025-01-28 05:42] LABS: CREATININE 1.4 mg/dL (0.6-1.3); UREA NITROGEN BLOOD 15 mg/dL (9-23)
[2025-01-28 08:14] LABS: BG BASE EXCESS -4.1 mmol/L (-2.0-3.0); BG CARBOXYHEMOGLOBIN 2.0 % (0.5-1.5); BG DEOXYHEMOGLOBIN 1.1 % (0.0-5.0); BG FRACTION INSPIRED OXYGEN 32; BG HCO3 ACT 20.6 mmol/L (21.0-28.0); BG METHEMOGLOBIN 0.3 % (0.5-1.5); BG OXYGEN SATURATION 98.9 % (94.0-98.0); BG OXYHEMOGLOBIN 96.6 % (94.0-98.0); BG PCO2 35.6 mmHg (35.0-48.0); BG PH 7.381 (7.350-7.450); BG PO2 130.4 mmHg (83.0-108.0); BG SAMPLE SITE RIGHT RADIAL; BG TOTAL HEMOGLOBIN 6.1 g/dL (13.5-17.5); BG VENT MODE MASK - BIPAP; BG VENT RATE 18.0 set
[2025-01-28] MEDS: METOLAZONE 5MG TABLET PO SCH (08:24)
[2025-01-28] MEDS: FUROSEMIDE 40MG/4ML VIAL IVP SCH (08:34)
[2025-01-28 13:00] LABS: ASPARTATE AMINOTRANSFERASE 43 IU/L (<34); BILIRUBIN DIRECT 0.6 mg/dL (<=3.0); BILIRUBIN TOTAL 1.0 mg/dL (0.1-1.0); PROTEIN TOTAL 6.0 g/dL (6.0-8.3)
[2025-01-28] MEDS: VANCOMYCIN 750MG/150ML (BAXTER) IV SCH (13:54)
[2025-01-28] MEDS: QUETIAPINE FUMARATE 25MG TABLET PO SCH (20:10)
[2025-01-29] VITALS (54 sets, daily range): BP systolic 95–165; BP diastolic 44–120; PULSE 87–105; RESP 19–44; TEMP 36.4–38.3; O2SAT 95–99
[2025-01-29 05:26] LABS: BASOPHILS % 0.4 % (0.0-2.0); EOSINOPHILS % 4.1 % (0.0-5.0); HEMATOCRIT. 23.8 % (42.0-52.0); HEMOGLOBIN. 7.7 g/dL (14.0-18.0); LYMPHOCYTES % 12.8 % (20.0-50.0); MEAN PLATELET VOLUME 7.7 fl (7.4-10.4); MONOCYTES % 10.0 % (2.0-8.0); NEUTROPHILS % 72.7 % (40.0-76.0); PLATELET 353 x1000/uL (130-400); RED BLOOD CELL COUNT 2.81 mill/uL (4.7-6.1); RED CELL DISTRIBUTION WIDTH 20.9 % (11.6-14.6)
[2025-01-29 05:37] LABS: CREATININE 1.6 mg/dL (0.6-1.3); UREA NITROGEN BLOOD 16.0 mg/dL (9-23)
[2025-01-29] MEDS: POTASSIUM CHLORIDE 20MEQ/PACKET NG SCH (08:19)
[2025-01-29] MEDS: ACETAMINOPHEN 325MG TABLET PO PRN (08:20)
[2025-01-30] VITALS: BP 120/56; PULSE 95; RESP 18; TEMP 36.6; O2SAT 95
[2025-01-30 04:00] VITALS: BP 120/62; PULSE 96; RESP 16; TEMP 36.2; O2SAT 98
[2025-01-30] MEDS: ACETAMINOPHEN 650MG/20.3ML UDC PO PRN (06:19)
[2025-01-30 08:00] VITALS: BP 103/55; PULSE 97; RESP 17; TEMP 35.8; O2SAT 98
[2025-01-30 09:40] LABS: BASOPHILS % 0.9 % (0.0-2.0); EOSINOPHILS % 3.7 % (0.0-5.0); HEMATOCRIT. 24.9 % (42.0-52.0); HEMOGLOBIN. 8.2 g/dL (14.0-18.0); LYMPHOCYTES % 14.8 % (20.0-50.0); MEAN PLATELET VOLUME 8.1 fl (7.4-10.4); MONOCYTES % 10.5 % (2.0-8.0); NEUTROPHILS % 70.1 % (40.0-76.0); PLATELET 332 x1000/uL (130-400); RED BLOOD CELL COUNT 2.95 mill/uL (4.7-6.1); RED CELL DISTRIBUTION WIDTH 20.7 % (11.6-14.6)
[2025-01-30 09:46] LABS: CREATININE 1.7 mg/dL (0.6-1.3); UREA NITROGEN BLOOD 18.0 mg/dL (9-23)
[2025-01-30 11:27] LABS: PROSTATE SPECIFIC AG TOTAL 2.2 ng/mL (0.0-4.0)
[2025-01-30 16:00] VITALS: BP 109/69; PULSE 68; RESP 18; TEMP 36.2; O2SAT 97
[2025-01-30] MEDS: VANCOMYCIN 1.25GM/250ML IV SCH (17:52)
[2025-01-31] VITALS (7 sets, daily range): BP systolic 91–151; BP diastolic 56–90; PULSE 46–103; RESP 18; TEMP 36.1–36.6; O2SAT 95–100
[2025-01-31 04:07] LABS: CA 19-9 < 2 U/mL (0-35); CARCINOEMBRYONIC AG - SEND OUT 10.5 ng/mL (0.0-4.7)
[2025-01-31] MEDS: HYDROCODONE/ACETAMINOPHEN 5/325MG TABLET PO SCH (09:44)
[2025-01-31 12:22] LABS: BASOPHILS % 0.5 % (0.0-2.0); EOSINOPHILS % 4.1 % (0.0-5.0); HEMATOCRIT. 23.3 % (42.0-52.0); HEMOGLOBIN. 7.7 g/dL (14.0-18.0); LYMPHOCYTES % 11.2 % (20.0-50.0); MEAN PLATELET VOLUME 8.4 fl (7.4-10.4); MONOCYTES % 6.3 % (2.0-8.0); NEUTROPHILS % 77.9 % (40.0-76.0); PLATELET 308 x1000/uL (130-400); RED BLOOD CELL COUNT 2.79 mill/uL (4.7-6.1); RED CELL DISTRIBUTION WIDTH 20.2 % (11.6-14.6)
[2025-01-31 12:37] LABS: CREATININE 1.7 mg/dL (0.6-1.3); UREA NITROGEN BLOOD 22.0 mg/dL (9-23)
[2025-01-31] MEDS: POTASSIUM CHLORIDE 20MEQ TABLET SR PO SCH (13:32)
[2025-02-01] VITALS: BP 107/56; PULSE 103; RESP 18; TEMP 36.4; O2SAT 97
[2025-02-01 04:00] VITALS: BP 127/60; PULSE 89; RESP 18; TEMP 36.6; O2SAT 98
[2025-02-01 08:00] VITALS: BP 120/57; PULSE 90; RESP 20; TEMP 36.6; O2SAT 96
[2025-02-01 08:03] LABS: CREATININE 1.8 mg/dL (0.6-1.3)
[2025-02-01 08:04] LABS: UREA NITROGEN BLOOD 19.0 mg/dL (9-23)
[2025-02-01] MEDS: BLOOD SUGAR DIAGNOSTIC STRIP TEST SCH (09:30)
[2025-02-01] MEDS ORDERED: NALOXONE HCL 0.4MG/ML VIAL IV PRN (11:00)
[2025-02-01] MEDS: HYDROCODONE/ACETAMINOPHEN 5/325MG TABLET PO PRN (11:07)
[2025-02-01 12:00] VITALS: BP 110/60; PULSE 89; RESP 20; TEMP 36.4; O2SAT 98
[2025-02-01 13:00] LABS: BASOPHILS % 0.4 % (0.0-2.0); EOSINOPHILS % 2.9 % (0.0-5.0); HEMATOCRIT. 22.2 % (42.0-52.0); HEMOGLOBIN. 7.3 g/dL (14.0-18.0); LYMPHOCYTES % 14.9 % (20.0-50.0); MEAN PLATELET VOLUME 8.8 fl (7.4-10.4); MONOCYTES % 8.1 % (2.0-8.0); NEUTROPHILS % 73.7 % (40.0-76.0); PLATELET 310 x1000/uL (130-400); RED BLOOD CELL COUNT 2.64 mill/uL (4.7-6.1); RED CELL DISTRIBUTION WIDTH 20.7 % (11.6-14.6)
[2025-02-01] MEDS: INSULIN LISPRO 100 UNITS/ML SUBCUT SCH (14:05)
[2025-02-01 16:00] VITALS: BP 114/65; PULSE 89; RESP 20; TEMP 36.8; O2SAT 100
[2025-02-01] MEDS ORDERED: FLUC200T51 MT (16:01)
[2025-02-01 20:00] VITALS: BP 102/53; PULSE 92; RESP 18; TEMP 36.7; O2SAT 95
[2025-02-01] MEDS: FERROUS SULFATE 325MG TABLET PO SCH (22:53)
[2025-02-02] VITALS: BP_SYST 110; BP_SYST 118; BP_DIAS 59; BP_DIAS 75; PULSE 83; RESP 18; RESP 19; TEMP 36.3; O2SAT 95; O2SAT 96
[2025-02-02 04:00] VITALS: BP 121/73; PULSE 80; RESP 18; TEMP 36.6; O2SAT 95
[2025-02-02 08:00] VITALS: BP 105/51; PULSE 75; RESP 18; TEMP 36.8; O2SAT 99
[2025-02-02] MEDS ORDERED: FLUC200T51 MT (11:24)
[2025-02-02 12:00] VITALS: BP 131/74; PULSE 83; RESP 18; TEMP 36.9; O2SAT 99
[2025-02-02 16:00] VITALS: BP 140/89; PULSE 78; RESP 18; TEMP 36.5; O2SAT 99
[2025-02-02 20:00] VITALS: BP 121/62; PULSE 80; RESP 17; TEMP 36.4; O2SAT 97
[2025-02-03] VITALS: BP 129/61; PULSE 84; RESP 17; TEMP 36; O2SAT 96
[2025-02-03 04:00] VITALS: BP 130/62; PULSE 80; RESP 18; TEMP 36.4; O2SAT 97
[2025-02-03 06:56] LABS: BASOPHILS % 0.3 % (0.0-2.0); EOSINOPHILS % 0.3 % (0.0-5.0); HEMATOCRIT. 24.3 % (42.0-52.0); HEMOGLOBIN. 8.1 g/dL (14.0-18.0); LYMPHOCYTES % 9.0 % (20.0-50.0); MEAN PLATELET VOLUME 8.9 fl (7.4-10.4); MONOCYTES % 4.3 % (2.0-8.0); NEUTROPHILS % 86.1 % (40.0-76.0); PLATELET 351 x1000/uL (130-400); RED BLOOD CELL COUNT 2.89 mill/uL (4.7-6.1); RED CELL DISTRIBUTION WIDTH 20.2 % (11.6-14.6)
[2025-02-03 07:12] LABS: CREATININE 1.9 mg/dL (0.6-1.3); UREA NITROGEN BLOOD 25.0 mg/dL (9-23)
[2025-02-03 08:00] VITALS: BP 109/61; PULSE 89; RESP 22; TEMP 36.3; O2SAT 99
[2025-02-03] MEDS: POTASSIUM CHLORIDE 20MEQ/PACKET PO NR ×2 (09:59→12:17)
[2025-02-03 12:00] VITALS: BP 118/52; PULSE 79; RESP 22; TEMP 36.3; O2SAT 100
[2025-02-03] MEDS ORDERED: IPRATROPIUM/ALBUTEROL 0.5-3(2.5)MG/3ML NEB HHN SCH (12:00)
[2025-02-03] MEDS ORDERED: HYDRALAZINE 10 MG in SODIUM CHLORIDE 0.9% 49.5 ML IV PRN (14:45)
[2025-02-03 16:00] VITALS: BP 103/54; PULSE 91; RESP 20; TEMP 36.3; O2SAT 97
[2025-02-03 16:11] VITALS: BP 118/52; PULSE 79; TEMP 97.4; O2SAT 100
== END 2025-02-03 17:46 | DRG 871 ==
LOC: ER 10:18 → 8WST 12:59 → EDBEDREQ 13:44 → EDBEDREQTM 13:44 → MICUNO 15:45 → MICUSO 01-27 17:57 → 5WST 01-29 17:00 → 7EST 02-03 00:25
PROVIDERS: ADMIT Internal Medicine; ATTEND Internal Medicine
PROC: 5A09357 Assistance with Respiratory Ventilation, Less than 24 Consecutive Hours, Continuous Positive Airway Pressure (ICD-10-PCS; 2025-01-22)
PROC: 5A09357 Assistance with Respiratory Ventilation, Less than 24 Consecutive Hours, Continuous Positive Airway Pressure (ICD-10-PCS; 2025-01-23)
PROC: 30233N1 Transfusion of Nonautologous Red Blood Cells into Peripheral Vein, Percutaneous Approach (ICD-10-PCS; 2025-01-23)
PROC: 05HY33Z Insertion of Infusion Device into Upper Vein, Percutaneous Approach (ICD-10-PCS; principal; 2025-01-24)
PROC: B54MZZA Ultrasonography of Right Upper Extremity Veins, Guidance (ICD-10-PCS; 2025-01-24)
PROC: 5A09357 Assistance with Respiratory Ventilation, Less than 24 Consecutive Hours, Continuous Positive Airway Pressure (ICD-10-PCS; 2025-01-24)
PROC: 0BH17EZ Insertion of Endotracheal Airway into Trachea, Via Natural or Artificial Opening (ICD-10-PCS; 2025-01-25)
PROC: 5A1945Z Respiratory Ventilation, 24-96 Consecutive Hours (ICD-10-PCS; 2025-01-25)
PROC: 5A09357 Assistance with Respiratory Ventilation, Less than 24 Consecutive Hours, Continuous Positive Airway Pressure (ICD-10-PCS; 2025-01-27)
PROC: 5A09357 Assistance with Respiratory Ventilation, Less than 24 Consecutive Hours, Continuous Positive Airway Pressure (ICD-10-PCS; 2025-01-28)
PROC: 5A0935A Assistance with Respiratory Ventilation, Less than 24 Consecutive Hours, High Flow/Velocity Cannula (ICD-10-PCS; 2025-01-28)
DX: B37.7 Candidal sepsis (principal); E11.10 Type 2 diabetes mellitus with ketoacidosis without coma; L89.153 Pressure ulcer of sacral region, stage 3; J96.01 Acute respiratory failure with hypoxia; K85.90 Acute pancreatitis without necrosis or infection, unspecified; G93.41 Metabolic encephalopathy; N17.0 Acute kidney failure with tubular necrosis; E87.0 Hyperosmolality and hypernatremia; J44.1 Chronic obstructive pulmonary disease with (acute) exacerbation; I13.0 Hypertensive heart and chronic kidney disease with heart failure and stage 1 through stage 4 chronic kidney disease, or unspecified chronic kidney disease; D68.9 Coagulation defect, unspecified; E11.22 Type 2 diabetes mellitus with diabetic chronic kidney disease; I48.91 Unspecified atrial fibrillation; G93.89 Other specified disorders of brain; G89.29 Other chronic pain; I50.9 Heart failure, unspecified; N18.9 Chronic kidney disease, unspecified; E53.8 Deficiency of other specified B group vitamins; K76.0 Fatty (change of) liver, not elsewhere classified; E66.9 Obesity, unspecified; E61.1 Iron deficiency; Z68.35 Body mass index [BMI] 35.0-35.9, adult; F20.9 Schizophrenia, unspecified; D64.9 Anemia, unspecified; E88.09 Other disorders of plasma-protein metabolism, not elsewhere classified; K44.9 Diaphragmatic hernia without obstruction or gangrene; D75.839 Thrombocytosis, unspecified; K29.30 Chronic superficial gastritis without bleeding; K59.00 Constipation, unspecified; R16.0 Hepatomegaly, not elsewhere classified; F41.9 Anxiety disorder, unspecified; Z79.899 Other long term (current) drug therapy; Z96.642 Presence of left artificial hip joint; Z88.6 Allergy status to analgesic agent; Z87.11 Personal history of peptic ulcer disease; Z86.73 Personal history of transient ischemic attack (TIA), and cerebral infarction without residual deficits; Z86.14 Personal history of Methicillin resistant Staphylococcus aureus infection; Z99.81 Dependence on supplemental oxygen; Z76.5 Malingerer [conscious simulation]
CPT/HCPCS: 31500; 31720; 36415; 36573; 36600; 70496; 70498; 70551; 71045; 74176; 74181; 76705; 80048; 80051; 80061; 80076; 80202; 80305; 80320; 81003; 82010; 82105; 82140; 82150; 82375; 82378; 82550; 82607; 82728; 82746; 82803; 82805; 82962; 83540; 83550; 83605; 83735; 83880; 83930; 83935; 84100; 84145; 84153; 84300; 84425; 84443; 84478; 84484; 85014; 85018; 85025; 85027; 85044; 86301; 86850; 86900; 86920; 87070; 87106; 87426; 92610; 93005; 93306; 93971; 94002; 94003; 94070; 94640; 94660; 94664; 97162; 98960; 99291; A4606; A6261; C1725; J0360; J1171; J1308; J1815; J1938; J2003; J2060; J2248; J2250; J2405; J2470; J2543; J2704; J3010; J3373; J3480; J3490; J7030; J7042; J7050; J7070; P9016; Q9963; Q9967; G0480

== ENCOUNTER 2025-02-04 13:39 | Inpatient (IN) | payer BC, MEDICAID, MEDICARE ==
[~2025-02-04] VITALS: Ht 188 cm; Wt 103.0 kg
[~2025-02-04 13:39] MED LIST changes: +DEXTROSE 50% WATER 50ML SYRINGE IV ONE; +EPINEPHRINE 0.1MG/ML (1:10,000) 10ML SYR ONE; +FLUC200T51 MT; +SODIUM CHLORIDE 0.9% 10ML FLUSH IVF ONE
[2025-02-04 13:41] VITALS: O2SAT 98
[2025-02-04] MEDS: DEXTROSE 50% WATER 50ML SYRINGE IV ONE (13:58)
[2025-02-04 14:21] LABS: HEMATOCRIT. 21.4 % (42.0-52.0); MEAN PLATELET VOLUME 8.5 fl (7.4-10.4); PLATELET 369 x1000/uL (130-400); RED BLOOD CELL COUNT 2.43 mill/uL (4.7-6.1); RED CELL DISTRIBUTION WIDTH 21.3 % (11.6-14.6)
[2025-02-04 14:27] LABS: HEMOGLOBIN. 6.7 g/dL (14.0-18.0)
[2025-02-04 14:40] LABS: UREA NITROGEN BLOOD 37 mg/dL (9-23)
[2025-02-04 14:48] LABS: BAND% 6.0 % (1.0-6.0); LYMPHOCYTES % MANUAL 10.0 % (20.0-50.0); MONOCYTES % MANUAL 5.0 % (2.0-8.0); NEUTROPHILS % MANUAL 79.0 % (45.0-75.0); PLATELET ESTIMATE NORMAL
[2025-02-04 15:01] LABS: CREATININE 3.7 mg/dL (0.6-1.3); TROPONIN I HIGH SENSITIVITY 67 ng/L (3.0-53)
[2025-02-04 15:09] LABS: CLARITY URINE CLEAR (CLEAR); COLOR URINE DARK YELLOW (YELLOW); GLUCOSE URINE NEGATIVE (NEGATIVE); KETONES URINE TRACE (NEGATIVE); LEUKOCYTE ESTERASE URINE TRACE (NEGATIVE); NITRITE URINE NEGATIVE (NEGATIVE); OCCULT BLOOD URINE 1+ (NEGATIVE); PH URINE 5.0 (4.5-8.0); PROTEIN URINE TRACE (NEGATIVE); SPECIFIC GRAVITY URINE 1.029 (1.005-1.030); UROBILINOGEN URINE 1.0 E.U./dL (0.2-1.0)
[2025-02-04] MEDS ORDERED: VANCOMYCIN 1000MG/250ML 250 ML IV SCH (15:15)
[2025-02-04] MEDS: PIPERACILLIN/TAZO 3.375G/50ML 50 ML IV SCH (15:28)
[2025-02-04] MEDS: SODIUM CHLORIDE 0.9% (SEPSIS BOLUS) IV ONE (15:28)
[2025-02-04 15:30] LABS: SQUAMOUS EPITHELIAL CELL URINE 2+ /lpf (RARE/1+)
[2025-02-04] MEDS: VANCOMYCIN 1G PREMIX 200 ML IV SCH (15:30)
[2025-02-04 15:31] LABS: WBC URINE 0-2 /hpf (0-2)
[2025-02-04 15:32] LABS: BACTERIA URINE 1+
[2025-02-04] MEDS ORDERED: PANTOPRAZOLE 80 MG in SODIUM CHLORIDE 0.9% 100 ML IV SCH (16:00)
[2025-02-04 16:53] LABS: TROPONIN I HIGH SENSITIVITY 79 ng/L (3.0-53)
[2025-02-04] MEDS ORDERED: DOCUSATE SODIUM 100MG CAPSULE PO PRN (17:15)
[2025-02-04] MEDS ORDERED: CLONIDINE 0.1MG TABLET PO PRN (17:15)
[2025-02-04] MEDS ORDERED: IPRATROPIUM/ALBUTEROL 0.5-3(2.5)MG/3ML NEB HHN PRN (17:15)
[2025-02-04 18:05] VITALS: BP 114/50; PULSE 80; RESP 17; TEMP 36.5848
[2025-02-04 19:07] LABS: BILIRUBIN DIRECT 1.6 mg/dL (<=3.0); BILIRUBIN TOTAL 2.3 mg/dL (0.1-1.0); PROTEIN TOTAL 5.4 g/dL (6.0-8.3)
[2025-02-04 19:18] LABS: ASPARTATE AMINOTRANSFERASE 3625 IU/L (<34)
[2025-02-04 20:00] VITALS: BP 133/49; PULSE 81; RESP 17; TEMP 36.3; O2SAT 98
[2025-02-04] MEDS ORDERED: DEXTROSE 50% WATER 50ML SYRINGE IV PRN (20:00)
[2025-02-04 20:15] VITALS: BP 114/50; PULSE 80; RESP 17; TEMP 36.2; O2SAT 98
[2025-02-04] MEDS: SODIUM CHLORIDE 0.9% 1,000 ML IV SCH (20:20)
[2025-02-04] MEDS ORDERED: BLOOD SUGAR DIAGNOSTIC STRIP TEST SCH (21:00)
[2025-02-04] MEDS: INSULIN LISPRO 100 UNITS/ML SUBCUT SCH (21:00)
[2025-02-04 21:40] LABS: BG BASE EXCESS -10.2 mmol/L (-2.0-3.0); BG CARBOXYHEMOGLOBIN 0.4 % (0.5-1.5); BG DEOXYHEMOGLOBIN 2.9 % (0.0-5.0); BG HCO3 ACT 14.3 mmol/L (21.0-28.0); BG METHEMOGLOBIN 0.2 % (0.5-1.5); BG OXYGEN SATURATION 97.1 % (94.0-98.0); BG OXYHEMOGLOBIN 96.5 % (94.0-98.0); BG PCO2 26.6 mmHg (35.0-48.0); BG PH 7.348 (7.350-7.450); BG PO2 98.3 mmHg (83.0-108.0); BG SAMPLE SITE RIGHT RADIAL; BG TOTAL HEMOGLOBIN 8.6 g/dL (13.5-17.5); BG VENT MODE ROOM AIR
[2025-02-04] MEDS: MICAFUNGIN 100 MG in SODIUM CHLORIDE 0.9% 100 ML IV SCH (21:45)
[2025-02-04] MEDS: VANCOMYCIN 500MG/100ML IV SCH (21:45)
[2025-02-04 22:00] VITALS: BP 109/54; PULSE 115; RESP 15; O2SAT 98
[2025-02-05] VITALS (10 sets, daily range): BP systolic 96–145; BP diastolic 41–73; PULSE 80–111; RESP 20–26; TEMP 36.6–36.8; O2SAT 97–98
[2025-02-05] MEDS: ONDANSETRON HCL 4MG/2ML INJ IV PRN (00:45)
[2025-02-05 07:33] LABS: BASOPHILS % 0.3 % (0.0-2.0); EOSINOPHILS % 1.4 % (0.0-5.0); HEMATOCRIT. 26.0 % (42.0-52.0); LYMPHOCYTES % 10.2 % (20.0-50.0); MEAN PLATELET VOLUME 8.6 fl (7.4-10.4); MONOCYTES % 3.2 % (2.0-8.0); NEUTROPHILS % 84.9 % (40.0-76.0); PLATELET 374 x1000/uL (130-400); RED BLOOD CELL COUNT 3.01 mill/uL (4.7-6.1); RED CELL DISTRIBUTION WIDTH 20.4 % (11.6-14.6)
[2025-02-05 07:34] LABS: CREATININE 4.1 mg/dL (0.6-1.3); UREA NITROGEN BLOOD 34 mg/dL (9-23)
[2025-02-05 07:36] LABS: BILIRUBIN TOTAL 2.8 mg/dL (0.1-1.0); PROTEIN TOTAL 5.8 g/dL (6.0-8.3)
[2025-02-05 07:48] LABS: ASPARTATE AMINOTRANSFERASE 2901 IU/L (<34)
[2025-02-05 08:15] LABS: HEMOGLOBIN. 8.2 g/dL (14.0-18.0)
[2025-02-05] MEDS: SODIUM BICARBONATE 100 MEQ in DEXTROSE 5% WATER 900 ML IV SCH (10:30)
[2025-02-05] MEDS: HYDROCODONE/ACETAMINOPHEN 5/325MG TABLET PO PRN (11:37)
[2025-02-05] MEDS: PANTOPRAZOLE SODIUM 40 MG/VIAL IV SCH (13:00)
[2025-02-05] MEDS: MORPHINE SULFATE 2 MG/ML INJ (NOT FOR IM USE) IV PRN (14:11)
[2025-02-05] MEDS: INSULIN LISPRO 100 UNITS/ML SUBCUT SCH (23:27)
[2025-02-05] MEDS: BLOOD SUGAR DIAGNOSTIC STRIP TEST SCH (23:27)
[2025-02-06] VITALS (12 sets, daily range): BP systolic 106–139; BP diastolic 49–96; PULSE 71–111; RESP 18–26; TEMP 36.5–37.3; O2SAT 96–99
[2025-02-06 07:27] LABS: PROTEIN TOTAL 5.9 g/dL (6.0-8.3); TRIGLYCERIDE 78 mg/dL (0-150)
[2025-02-06 07:28] LABS: UREA NITROGEN BLOOD 37 mg/dL (9-23)
[2025-02-06 07:30] LABS: BILIRUBIN DIRECT 2.8 mg/dL (<=3.0)
[2025-02-06 07:31] LABS: BASOPHILS % 0.3 % (0.0-2.0); BILIRUBIN TOTAL 3.6 mg/dL (0.1-1.0); EOSINOPHILS % 0.7 % (0.0-5.0); HEMATOCRIT. 23.8 % (42.0-52.0); HEMOGLOBIN. 8.0 g/dL (14.0-18.0); LYMPHOCYTES % 13.8 % (20.0-50.0); MEAN PLATELET VOLUME 8.2 fl (7.4-10.4); MONOCYTES % 5.8 % (2.0-8.0); NEUTROPHILS % 79.4 % (40.0-76.0); PLATELET 401 x1000/uL (130-400); RED BLOOD CELL COUNT 2.86 mill/uL (4.7-6.1); RED CELL DISTRIBUTION WIDTH 20.4 % (11.6-14.6)
[2025-02-06] MEDS: DIGOXIN 500MCG/2ML AMP IV NR (07:44)
[2025-02-06] MEDS: DILTIAZEM HCL 5MG/ML 5ML VIAL IV NR (07:44)
[2025-02-06] MEDS ORDERED: NALOXONE HCL 0.4MG/ML VIAL IV PRN (07:45)
[2025-02-06 08:58] LABS: CREATININE 5.1 mg/dL (0.6-1.3)
[2025-02-06] MEDS: PIPERACILLIN/TAZO 3.375G/50ML 50 ML IV SCH (09:34)
[2025-02-06 11:20] LABS: ASPARTATE AMINOTRANSFERASE 1128 IU/L (<34)
[2025-02-06] MEDS: VANCOMYCIN 500MG/100ML IV SCH (14:57)
[2025-02-06] MEDS: LACTULOSE 20G/30ML UDC PO SCH ×2 (14:57→22:57)
[2025-02-06] MEDS: RIFAXIMIN 550 MG TABLET PO SCH (23:18)
[2025-02-07] VITALS (20 sets, daily range): BP systolic 98–150; BP diastolic 52–88; PULSE 72–112; RESP 15–25; TEMP 36.114–37.5; O2SAT 97–100
[2025-02-07 08:26] LABS: BASOPHILS % 0.3 % (0.0-2.0); EOSINOPHILS % 1.9 % (0.0-5.0); HEMATOCRIT. 25.0 % (42.0-52.0); HEMOGLOBIN. 8.4 g/dL (14.0-18.0); LYMPHOCYTES % 21.9 % (20.0-50.0); MEAN PLATELET VOLUME 8.0 fl (7.4-10.4); MONOCYTES % 8.0 % (2.0-8.0); NEUTROPHILS % 67.9 % (40.0-76.0); PLATELET 384 x1000/uL (130-400); RED BLOOD CELL COUNT 3.02 mill/uL (4.7-6.1); RED CELL DISTRIBUTION WIDTH 20.0 % (11.6-14.6)
[2025-02-07 08:36] LABS: UREA NITROGEN BLOOD 43 mg/dL (9-23)
[2025-02-07 08:38] LABS: ASPARTATE AMINOTRANSFERASE 420 IU/L (<34); BILIRUBIN DIRECT 3.4 mg/dL (<=3.0); BILIRUBIN TOTAL 4.3 mg/dL (0.1-1.0); PHOSPHORUS 4.5 mg/dL (2.5-4.9); PROTEIN TOTAL 6.0 g/dL (6.0-8.3)
[2025-02-07 08:44] LABS: CREATININE 5.7 mg/dL (0.6-1.3)
[2025-02-07 09:21] LABS: INR 4.2
[2025-02-07 13:20] LABS: HEPATITIS A AB IGM NEGATIVE (Negative)
[2025-02-07 13:21] LABS: HEPATITIS B CORE AB IGM NEGATIVE (Negative); HEPATITIS C AB NON REACTIVE (Neg) (Negative)
[2025-02-07] MEDS ORDERED: LIDOCAINE HCL 1% 10 MG/ML 10ML VIAL ONE (13:25)
[2025-02-07] MEDS: VANCOMYCIN 500MG PREMIX 100 ML IV SCH (22:18)
[2025-02-08] VITALS (13 sets, daily range): BP systolic 11–148; BP diastolic 57–82; PULSE 78–122; RESP 16–26; TEMP 36.3–37.6; O2SAT 97–99
[2025-02-08] MEDS: BLOOD SUGAR DIAGNOSTIC STRIP TEST SCH (04:20)
[2025-02-08] MEDS: PHYTONADIONE 10 MG in DEXTROSE 5% WATER 49 ML IV SCH (11:40)
[2025-02-08 12:49] LABS: UREA NITROGEN BLOOD 34 mg/dL (9-23)
[2025-02-08 12:50] LABS: ASPARTATE AMINOTRANSFERASE 217 IU/L (<34)
[2025-02-08 12:51] LABS: BILIRUBIN DIRECT 3.8 mg/dL (<=3.0); BILIRUBIN TOTAL 6.0 mg/dL (0.1-1.0); PHOSPHORUS 3.6 mg/dL (2.5-4.9); PROTEIN TOTAL 6.4 g/dL (6.0-8.3)
[2025-02-08 12:52] LABS: BASOPHILS % 0.4 % (0.0-2.0); EOSINOPHILS % 0.6 % (0.0-5.0); HEMATOCRIT. 27.0 % (42.0-52.0); HEMOGLOBIN. 8.7 g/dL (14.0-18.0); LYMPHOCYTES % 15.9 % (20.0-50.0); MEAN PLATELET VOLUME 7.9 fl (7.4-10.4); MONOCYTES % 4.9 % (2.0-8.0); NEUTROPHILS % 78.2 % (40.0-76.0); PLATELET 393 x1000/uL (130-400); RED BLOOD CELL COUNT 3.23 mill/uL (4.7-6.1); RED CELL DISTRIBUTION WIDTH 20.7 % (11.6-14.6)
[2025-02-08 12:55] LABS: CREATININE 3.8 mg/dL (0.6-1.3)
[2025-02-09] VITALS (17 sets, daily range): BP systolic 100–154; BP diastolic 58–99; PULSE 98–114; RESP 18–22; TEMP 36.1–37.2; O2SAT 98–100
[2025-02-09 07:36] LABS: BASOPHILS % 0.2 % (0.0-2.0); EOSINOPHILS % 0.4 % (0.0-5.0); HEMATOCRIT. 25.2 % (42.0-52.0); HEMOGLOBIN. 8.5 g/dL (14.0-18.0); LYMPHOCYTES % 15.6 % (20.0-50.0); MEAN PLATELET VOLUME 7.7 fl (7.4-10.4); MONOCYTES % 6.7 % (2.0-8.0); NEUTROPHILS % 77.1 % (40.0-76.0); PLATELET 349 x1000/uL (130-400); RED BLOOD CELL COUNT 3.04 mill/uL (4.7-6.1); RED CELL DISTRIBUTION WIDTH 20.7 % (11.6-14.6)
[2025-02-09 07:43] LABS: UREA NITROGEN BLOOD 22 mg/dL (9-23)
[2025-02-09 07:45] LABS: PHOSPHORUS 1.9 mg/dL (2.5-4.9)
[2025-02-09 08:01] LABS: CREATININE 2.1 mg/dL (0.6-1.3)
[2025-02-09] MEDS: KCL 20MEQ/100ML PREMIX 100 ML IV SCH (10:00)
[2025-02-09] MEDS: POTASSIUM PHOSPHATE 30 MMOL in DEXT 5% WATER 490 ML IV NR (11:52)
[2025-02-09] MEDS: MAGNESIUM 2 G PREMIX 50 ML IV NR (11:52)
[2025-02-09] MEDS: VANCOMYCIN 1GM PMX (XELLIA) 200 ML IV SCH (15:36)
[2025-02-10] VITALS (18 sets, daily range): BP systolic 128–167; BP diastolic 64–109; PULSE 11–113; RESP 16–23; TEMP 35.89176–37.2; O2SAT 97–100
[2025-02-10 14:31] LABS: BASOPHILS % 0.1 % (0.0-2.0); EOSINOPHILS % 0.6 % (0.0-5.0); HEMATOCRIT. 26.4 % (42.0-52.0); HEMOGLOBIN. 9.0 g/dL (14.0-18.0); LYMPHOCYTES % 10.3 % (20.0-50.0); MEAN PLATELET VOLUME 7.6 fl (7.4-10.4); MONOCYTES % 7.2 % (2.0-8.0); NEUTROPHILS % 81.8 % (40.0-76.0); PLATELET 329 x1000/uL (130-400); RED BLOOD CELL COUNT 3.14 mill/uL (4.7-6.1); RED CELL DISTRIBUTION WIDTH 21.2 % (11.6-14.6)
[2025-02-10 14:54] LABS: CREATININE 1.5 mg/dL (0.6-1.3)
[2025-02-10 14:55] LABS: UREA NITROGEN BLOOD 15 mg/dL (9-23)
[2025-02-10 14:56] LABS: ASPARTATE AMINOTRANSFERASE 177 IU/L (<34)
[2025-02-10 14:57] LABS: BILIRUBIN TOTAL 6.7 mg/dL (0.1-1.0); PHOSPHORUS 2.2 mg/dL (2.5-4.9); PROTEIN TOTAL 6.8 g/dL (6.0-8.3)
[2025-02-11] VITALS (11 sets, daily range): BP systolic 116–149; BP diastolic 62–80; PULSE 58–101; RESP 15–20; TEMP 36.6–36.7; O2SAT 97–100
[2025-02-11 07:27] LABS: BASOPHILS % 0.1 % (0.0-2.0); EOSINOPHILS % 2.0 % (0.0-5.0); HEMATOCRIT. 25.8 % (42.0-52.0); HEMOGLOBIN. 8.6 g/dL (14.0-18.0); LYMPHOCYTES % 11.5 % (20.0-50.0); MEAN PLATELET VOLUME 7.2 fl (7.4-10.4); MONOCYTES % 8.9 % (2.0-8.0); NEUTROPHILS % 77.5 % (40.0-76.0); PLATELET 284 x1000/uL (130-400); RED BLOOD CELL COUNT 3.05 mill/uL (4.7-6.1); RED CELL DISTRIBUTION WIDTH 21.8 % (11.6-14.6)
[2025-02-11 07:57] LABS: CREATININE 1.6 mg/dL (0.6-1.3)
[2025-02-11 07:58] LABS: ASPARTATE AMINOTRANSFERASE 158 IU/L (<34); UREA NITROGEN BLOOD 16 mg/dL (9-23)
[2025-02-11 07:59] LABS: BILIRUBIN DIRECT 4.5 mg/dL (<=3.0)
[2025-02-11 08:00] LABS: BILIRUBIN TOTAL 6.7 mg/dL (0.1-1.0); PROTEIN TOTAL 6.3 g/dL (6.0-8.3)
[2025-02-11] MEDS: POTASSIUM CHLORIDE 20MEQ/PACKET PO SCH (09:22)
[2025-02-11] MEDS: PIPERACILLIN/TAZO 3.375G/50ML 50 ML IV SCH (15:30)
[2025-02-11] MEDS: VANCOMYCIN 500MG/100ML IV SCH (16:26)
[2025-02-12] VITALS: BP 132/71; PULSE 97; RESP 17; TEMP 37.1; O2SAT 100
[2025-02-12 04:00] VITALS: BP 119/52; PULSE 93; RESP 18; TEMP 37; O2SAT 97
[2025-02-12 06:24] LABS: CREATININE 1.5 mg/dL (0.6-1.3)
[2025-02-12 06:25] LABS: UREA NITROGEN BLOOD 17 mg/dL (9-23)
[2025-02-12 06:26] LABS: ASPARTATE AMINOTRANSFERASE 149 IU/L (<34)
[2025-02-12 06:27] LABS: BILIRUBIN DIRECT 4.8 mg/dL (<=3.0); BILIRUBIN TOTAL 7.4 mg/dL (0.1-1.0)
[2025-02-12 06:28] LABS: BASOPHILS % 0.2 % (0.0-2.0); EOSINOPHILS % 1.4 % (0.0-5.0); HEMATOCRIT. 28.9 % (42.0-52.0); HEMOGLOBIN. 9.5 g/dL (14.0-18.0); LYMPHOCYTES % 16.2 % (20.0-50.0); MEAN PLATELET VOLUME 7.5 fl (7.4-10.4); MONOCYTES % 10.2 % (2.0-8.0); NEUTROPHILS % 72.0 % (40.0-76.0); PLATELET 304 x1000/uL (130-400); PROTEIN TOTAL 6.7 g/dL (6.0-8.3); RED BLOOD CELL COUNT 3.35 mill/uL (4.7-6.1); RED CELL DISTRIBUTION WIDTH 22.5 % (11.6-14.6)
[2025-02-12 06:37] LABS: ADD RBC MORPHOLOGY NO
[2025-02-12 08:29] VITALS: BP 128/55; PULSE 90; RESP 20; TEMP 36.4; O2SAT 97
[2025-02-12] MEDS ORDERED: NALOXONE HCL 0.4MG/ML VIAL IV PRN (09:00)
[2025-02-12] MEDS: POTASSIUM CHLORIDE 20MEQ/PACKET PO SCH (10:17)
[2025-02-12] MEDS: HYDROCODONE/ACETAMINOPHEN 5/325MG TABLET PO PRN (10:18)
[2025-02-12 11:53] VITALS: BP 134/74; PULSE 89; RESP 20; TEMP 36.6; O2SAT 98
[2025-02-12 16:28] VITALS: BP 143/59; PULSE 85; RESP 18; TEMP 36.4; O2SAT 99
[2025-02-12 20:00] VITALS: BP 161/77; PULSE 83; RESP 20; TEMP 37.3; O2SAT 96
[2025-02-13] VITALS: BP 135/68; PULSE 82; RESP 18; TEMP 36.9; O2SAT 97
[2025-02-13 04:00] VITALS: BP 122/66; PULSE 81; RESP 20; TEMP 37; O2SAT 98
[2025-02-13 06:22] LABS: CREATININE 1.4 mg/dL (0.6-1.3)
[2025-02-13 06:23] LABS: ASPARTATE AMINOTRANSFERASE 132 IU/L (<34); UREA NITROGEN BLOOD 16 mg/dL (9-23)
[2025-02-13 06:24] LABS: BILIRUBIN DIRECT 4.8 mg/dL (<=3.0)
[2025-02-13 06:25] LABS: PROTEIN TOTAL 6.1 g/dL (6.0-8.3)
[2025-02-13 06:26] LABS: BILIRUBIN TOTAL 6.3 mg/dL (0.1-1.0)
[2025-02-13 07:08] LABS: BASOPHILS % 0.3 % (0.0-2.0); EOSINOPHILS % 2.2 % (0.0-5.0); HEMATOCRIT. 27.8 % (42.0-52.0); HEMOGLOBIN. 9.2 g/dL (14.0-18.0); LYMPHOCYTES % 16.8 % (20.0-50.0); MEAN PLATELET VOLUME 7.8 fl (7.4-10.4); MONOCYTES % 11.4 % (2.0-8.0); NEUTROPHILS % 69.3 % (40.0-76.0); PLATELET 256 x1000/uL (130-400); RED BLOOD CELL COUNT 3.24 mill/uL (4.7-6.1); RED CELL DISTRIBUTION WIDTH 23.4 % (11.6-14.6)
[2025-02-13 08:00] VITALS: BP 135/63; PULSE 75; RESP 17; TEMP 36.2; O2SAT 95
[2025-02-13 12:00] VITALS: BP 139/69; PULSE 79; RESP 18; TEMP 36.3; O2SAT 96
[2025-02-13] MEDS ORDERED: LACT-390 PO (12:31)
[2025-02-13 15:07] LABS: INR 1.4
[2025-02-13 16:00] VITALS: BP 130/58; PULSE 78; RESP 17; TEMP 36.3; O2SAT 97
[2025-02-13 20:00] VITALS: BP 122/60; PULSE 76; RESP 18; TEMP 36.6; O2SAT 95
[2025-02-14 00:20] VITALS: BP 128/62; PULSE 53; RESP 20; TEMP 36.3; O2SAT 96
[2025-02-14 04:00] VITALS: BP 144/67; PULSE 55; RESP 18; TEMP 36.4; O2SAT 95
[2025-02-14 06:31] LABS: INR 1.4
[2025-02-14 06:41] LABS: CREATININE 1.6 mg/dL (0.6-1.3); UREA NITROGEN BLOOD 15 mg/dL (9-23)
[2025-02-14 06:43] LABS: ASPARTATE AMINOTRANSFERASE 100 IU/L (<34); BILIRUBIN TOTAL 6.4 mg/dL (0.1-1.0); PROTEIN TOTAL 6.4 g/dL (6.0-8.3)
[2025-02-14 06:50] LABS: BASOPHILS % 0.3 % (0.0-2.0); EOSINOPHILS % 2.4 % (0.0-5.0); HEMATOCRIT. 25.9 % (42.0-52.0); HEMOGLOBIN. 8.7 g/dL (14.0-18.0); LYMPHOCYTES % 14.3 % (20.0-50.0); MEAN PLATELET VOLUME 7.6 fl (7.4-10.4); MONOCYTES % 8.5 % (2.0-8.0); NEUTROPHILS % 74.5 % (40.0-76.0); PLATELET 252 x1000/uL (130-400); RED BLOOD CELL COUNT 3.02 mill/uL (4.7-6.1); RED CELL DISTRIBUTION WIDTH 23.7 % (11.6-14.6)
[2025-02-14 07:09] LABS: ADD RBC MORPHOLOGY NO
[2025-02-14 08:00] VITALS: BP 130/64; PULSE 89; RESP 20; TEMP 36.7; O2SAT 97
[2025-02-14 12:00] VITALS: BP 105/65; PULSE 79; RESP 18; TEMP 36.2; O2SAT 99
[2025-02-14] MEDS: VANCOMYCIN 750MG/150ML (BAXTER) IV SCH (13:58)
[2025-02-14] MEDS: LACTULOSE 20G/30ML UDC PO SCH (13:58)
[2025-02-14] MEDS: POTASSIUM CHLORIDE 20MEQ TABLET SR PO SCH (13:58)
[2025-02-14] MEDS: PHYTONADIONE 10MG/ML INJ SUBCUT SCH (15:59)
[2025-02-14 16:00] VITALS: BP 151/83; PULSE 62; RESP 20; TEMP 36.3; O2SAT 99
[2025-02-14] MEDS: HYDROCODONE/ACETAMINOPHEN 5/325MG TABLET PO PRN (16:00)
[2025-02-14] MEDS: LIDOCAINE 5% PATCH TOP SCH (17:27)
[2025-02-14 20:00] VITALS: BP 112/67; PULSE 85; RESP 20; TEMP 37.6; O2SAT 97
[2025-02-14] MEDS: RIFAXIMIN 550 MG TABLET PO SCH (20:51)
[2025-02-15] VITALS: BP 115/64; PULSE 83; RESP 18; TEMP 36.8; O2SAT 96
[2025-02-15 04:00] VITALS: BP 127/63; PULSE 78; RESP 20; TEMP 37.1; O2SAT 96
[2025-02-15 07:25] LABS: BASOPHILS % 0.2 % (0.0-2.0); EOSINOPHILS % 2.8 % (0.0-5.0); HEMATOCRIT. 29.2 % (42.0-52.0); HEMOGLOBIN. 9.7 g/dL (14.0-18.0); LYMPHOCYTES % 18.5 % (20.0-50.0); MEAN PLATELET VOLUME 7.5 fl (7.4-10.4); MONOCYTES % 7.8 % (2.0-8.0); NEUTROPHILS % 70.7 % (40.0-76.0); PLATELET 240 x1000/uL (130-400); RED BLOOD CELL COUNT 3.40 mill/uL (4.7-6.1); RED CELL DISTRIBUTION WIDTH 24.3 % (11.6-14.6)
[2025-02-15 07:40] VITALS: BP 140/72; PULSE 83; RESP 20; TEMP 36.2; O2SAT 98
[2025-02-15 07:42] LABS: CREATININE 1.5 mg/dL (0.6-1.3); UREA NITROGEN BLOOD 15 mg/dL (9-23)
[2025-02-15 07:44] LABS: ASPARTATE AMINOTRANSFERASE 105 IU/L (<34)
[2025-02-15 07:45] LABS: BILIRUBIN TOTAL 6.5 mg/dL (0.1-1.0); INR 1.4; PROTEIN TOTAL 6.6 g/dL (6.0-8.3)
[2025-02-15] MEDS: POTASSIUM CHLORIDE 20MEQ TABLET SR PO SCH (09:55)
[2025-02-15 12:00] VITALS: BP 135/74; PULSE 83; RESP 18; TEMP 36.1; O2SAT 100
[2025-02-15] MEDS: PHYTONADIONE 10MG/ML INJ SUBCUT SCH (14:49)
[2025-02-15 16:00] VITALS: BP 139/71; PULSE 87; RESP 18; TEMP 36.2; O2SAT 100
[2025-02-15 19:50] VITALS: BP 126/66; PULSE 73; RESP 21; TEMP 37.2; O2SAT 100
[2025-02-16] VITALS: BP 117/72; PULSE 75; RESP 20; TEMP 37; O2SAT 98
[2025-02-16 04:00] VITALS: BP 114/45; PULSE 96; RESP 21; TEMP 36.6; O2SAT 96
[2025-02-16 07:57] VITALS: BP 141/79; PULSE 87; RESP 20; TEMP 36.6; O2SAT 97
[2025-02-16 08:02] LABS: CREATININE 1.4 mg/dL (0.6-1.3); UREA NITROGEN BLOOD 13 mg/dL (9-23)
[2025-02-16 12:00] VITALS: BP 138/84; PULSE 83; RESP 18; TEMP 36.6; O2SAT 99
[2025-02-16 16:00] VITALS: BP 132/76; PULSE 93; RESP 19; TEMP 36.9; O2SAT 100
[2025-02-16 20:00] VITALS: BP 143/78; PULSE 84; RESP 18; TEMP 36.3; O2SAT 98
[2025-02-16] MEDS: MEROPENEM 1G/100ML 100 ML IV SCH (22:22)
[2025-02-17] VITALS: BP 128/66; PULSE 85; RESP 18; TEMP 37.1; O2SAT 97
[2025-02-17 04:00] VITALS: BP 136/71; PULSE 78; RESP 18; TEMP 37.1; O2SAT 98
[2025-02-17 08:00] VITALS: BP 104/50; PULSE 85; RESP 16; TEMP 36.3; O2SAT 97
[2025-02-17 10:54] LABS: BASOPHILS % 0.8 % (0.0-2.0); EOSINOPHILS % 3.1 % (0.0-5.0); HEMATOCRIT. 26.3 % (42.0-52.0); HEMOGLOBIN. 8.8 g/dL (14.0-18.0); LYMPHOCYTES % 24.2 % (20.0-50.0); MEAN PLATELET VOLUME 7.7 fl (7.4-10.4); MONOCYTES % 7.9 % (2.0-8.0); NEUTROPHILS % 64.0 % (40.0-76.0); PLATELET 189 x1000/uL (130-400); RED BLOOD CELL COUNT 3.04 mill/uL (4.7-6.1); RED CELL DISTRIBUTION WIDTH 25.3 % (11.6-14.6)
[2025-02-17 11:01] LABS: CREATININE 1.5 mg/dL (0.6-1.3); UREA NITROGEN BLOOD 15 mg/dL (9-23)
[2025-02-17 11:03] LABS: ASPARTATE AMINOTRANSFERASE 85 IU/L (<34); BILIRUBIN TOTAL 6.2 mg/dL (0.1-1.0); INR 1.4; PROTEIN TOTAL 6.3 g/dL (6.0-8.3)
[2025-02-17 12:00] VITALS: BP 138/51; PULSE 85; RESP 16; TEMP 36.3; O2SAT 98
[2025-02-17] MEDS: POTASSIUM CHLORIDE 20MEQ TABLET SR PO NR (14:48)
[2025-02-17 20:00] VITALS: BP 135/69; PULSE 89; RESP 18; TEMP 35.9; O2SAT 93
[2025-02-18] VITALS: BP 124/65; PULSE 103; RESP 19; TEMP 36.1; O2SAT 96
[2025-02-18 04:00] VITALS: BP 142/71; PULSE 84; RESP 18; TEMP 36.1; O2SAT 94
[2025-02-18 08:00] VITALS: BP 134/72; PULSE 83; RESP 18; TEMP 36.5; O2SAT 98
[2025-02-18 10:52] VITALS: BP 134/72; PULSE 83; RESP 10; TEMP 97.7
[2025-02-18 11:11] LABS: BASOPHILS % 0.4 % (0.0-2.0); EOSINOPHILS % 3.9 % (0.0-5.0); HEMATOCRIT. 24.9 % (42.0-52.0); HEMOGLOBIN. 8.4 g/dL (14.0-18.0); LYMPHOCYTES % 19.8 % (20.0-50.0); MEAN PLATELET VOLUME 7.8 fl (7.4-10.4); MONOCYTES % 7.5 % (2.0-8.0); NEUTROPHILS % 68.4 % (40.0-76.0); PLATELET 177 x1000/uL (130-400); RED BLOOD CELL COUNT 2.82 mill/uL (4.7-6.1); RED CELL DISTRIBUTION WIDTH 26.5 % (11.6-14.6)
[2025-02-18 11:15] LABS: INR 1.5
[2025-02-18 11:29] LABS: CREATININE 1.5 mg/dL (0.6-1.3); UREA NITROGEN BLOOD 15 mg/dL (9-23)
[2025-02-18 11:31] LABS: ASPARTATE AMINOTRANSFERASE 97 IU/L (<34); BILIRUBIN TOTAL 6.0 mg/dL (0.1-1.0); PROTEIN TOTAL 6.0 g/dL (6.0-8.3)
[2025-02-18 12:49] LABS: PHOSPHORUS 2.7 mg/dL (2.5-4.9)
== END 2025-02-18 12:00 | DRG 853 ==
LOC: ER 14:13 → EDBEDREQ 15:25 → EDBEDREQTM 15:25 → EDBEDREQSVC 15:25 → ENRESERV 16:16 → 5EST 17:07 → 3WST 02-08 10:23 → 5EST 02-08 10:29 → 7WST 02-11 23:49 → 7EST 02-16 08:38
PROVIDERS: ADMIT Internal Medicine; ATTEND Internal Medicine
PROC: 30233N1 Transfusion of Nonautologous Red Blood Cells into Peripheral Vein, Percutaneous Approach (ICD-10-PCS; 2025-02-04)
PROC: 30233K1 Transfusion of Nonautologous Frozen Plasma into Peripheral Vein, Percutaneous Approach (ICD-10-PCS; 2025-02-07)
PROC: 02HV33Z Insertion of Infusion Device into Superior Vena Cava, Percutaneous Approach (ICD-10-PCS; 2025-02-07)
PROC: B548ZZA Ultrasonography of Superior Vena Cava, Guidance (ICD-10-PCS; 2025-02-07)
PROC: 5A1D70Z Performance of Urinary Filtration, Intermittent, Less than 6 Hours Per Day (ICD-10-PCS; 2025-02-07)
PROC: 0JB90ZZ Excision of Buttock Subcutaneous Tissue and Fascia, Open Approach (ICD-10-PCS; principal; 2025-02-08)
PROC: 5A1D70Z Performance of Urinary Filtration, Intermittent, Less than 6 Hours Per Day (ICD-10-PCS; 2025-02-08)
PROC: 5A1D70Z Performance of Urinary Filtration, Intermittent, Less than 6 Hours Per Day (ICD-10-PCS; 2025-02-10)
DX: A41.9 Sepsis, unspecified organism (principal); E43 Unspecified severe protein-calorie malnutrition; L89.323 Pressure ulcer of left buttock, stage 3; K85.90 Acute pancreatitis without necrosis or infection, unspecified; I21.A1 Myocardial infarction type 2; N17.0 Acute kidney failure with tubular necrosis; K72.00 Acute and subacute hepatic failure without coma; B17.9 Acute viral hepatitis, unspecified; I13.0 Hypertensive heart and chronic kidney disease with heart failure and stage 1 through stage 4 chronic kidney disease, or unspecified chronic kidney disease; I50.32 Chronic diastolic (congestive) heart failure; D68.9 Coagulation defect, unspecified; E72.20 Disorder of urea cycle metabolism, unspecified; E87.20 Acidosis, unspecified; E11.649 Type 2 diabetes mellitus with hypoglycemia without coma; R65.20 Severe sepsis without septic shock; D64.9 Anemia, unspecified; E11.22 Type 2 diabetes mellitus with diabetic chronic kidney disease; N18.9 Chronic kidney disease, unspecified; E66.9 Obesity, unspecified; I48.91 Unspecified atrial fibrillation; K76.82 Hepatic encephalopathy; E83.39 Other disorders of phosphorus metabolism; E83.42 Hypomagnesemia; E87.6 Hypokalemia; J44.9 Chronic obstructive pulmonary disease, unspecified; R16.0 Hepatomegaly, not elsewhere classified; E88.09 Other disorders of plasma-protein metabolism, not elsewhere classified; K76.0 Fatty (change of) liver, not elsewhere classified; Z96.642 Presence of left artificial hip joint; Z86.14 Personal history of Methicillin resistant Staphylococcus aureus infection; Z79.84 Long term (current) use of oral hypoglycemic drugs; Z99.81 Dependence on supplemental oxygen; Z22.322 Carrier or suspected carrier of Methicillin resistant Staphylococcus aureus; Z86.73 Personal history of transient ischemic attack (TIA), and cerebral infarction without residual deficits; Z88.6 Allergy status to analgesic agent; Z76.5 Malingerer [conscious simulation]; Z88.8 Allergy status to other drugs, medicaments and biological substances; Z79.899 Other long term (current) drug therapy; Z68.29 Body mass index [BMI] 29.0-29.9, adult
CPT/HCPCS: 36415; 36556; 36600; 71045; 74018; 76700; 77001; 80048; 80053; 80076; 80162; 80202; 80307; 81003; 82140; 82270; 82375; 82533; 82550; 82787; 82805; 82962; 82977; 83605; 83735; 83880; 84100; 84145; 84478; 84484; 85014; 85018; 85025; 85027; 86705; 86709; 86850; 86900; 86920; 86927; 87340; 90935; 93005; 99291; 99292; A4606; C1752; J1160; J1642; J1815; J2003; J2185; J2248; J2270; J2405; J2470; J2543; J3373; J3430; J3475; J3480; J3490; J7030; J7050; J7060; J7070; P9016; P9017